=== PATIENT | male | born 1950 | race African-American/Black ===

== ENCOUNTER 2018-07-09 19:17 | Emergency (ER) | payer OTHER ==
[~2018-07-09] VITALS: Ht 193 cm; Wt 104.3 kg
[~2018-07-09 19:17] MED LIST: AZIT250T7; CARI350T22; MORP100T22; OXYCODONE 30 MG; PROAIR HFA AER
[2018-07-09 20:13] LABS: Basophils # (auto) 0 uL; Basophils % (auto) 0.6 % (0.0-2.0); Eosinophils # (auto) 0.4 uL; Eosinophils % (auto) 6.2 % (0.0-7.0); Hematocrit 41.3 % (41.0-53.0); Hemoglobin 13.5 g/dL (13.5-17.5); Lymphocytes # (auto) 2.5 uL; Lymphocytes % (auto) 36.8 % (10.0-50.0); Mean Corpuscular Hemoglobin 27.6 pg (28.0-32.0); Mean Corpuscular Hgb Conc. 32.6 g/dL (32.0-36.0); Mean Corpuscular Volume 84.6 fL (80.0-100.0); Monocytes # (auto) 0.6 uL; Monocytes % (auto) 8.2 % (0.0-12.0); Neutrophils # (auto) 3.3 uL; Neutrophils % (auto) 48.2 % (37.0-80.0); Nucleated Red Blood Cells % 0.2 %; Platelet Count (auto) 289 10^3/uL (140-450); Red Blood Cells 4.88 10^6/uL (4.5-5.90); Red Cell Distribution Width 14.5 % (11.8-14.3); White Blood Cell 6.8 10^3/uL (4.4-10.8)
[2018-07-09 20:16] LABS: INR 0.93 (0.9-1.15); Partial Thromboplastin Time 26.7 sec (23.78-33.04)
[2018-07-09 20:23] LABS: BUN/Creatinine Ratio 12.4; Calcium 9.7 mg/dL (8.5-10.1); Potassium 3.8 mmol/L (3.5-5.1)
[2018-07-09 20:26] LABS: Bilirubin, Total 0.3 mg/dL (0.2-1.0); Total Protein 8.3 g/dL (6.4-8.2)
[2018-07-10] MEDS: HYDROcodone-ACET 7.5/325MG TAB PO ONE (00:32)
[2018-07-10] MEDS: KETOROLAC TROMETH 60MG/2ML VIAL IM ONE (00:32)
[2018-07-10 01:26] VITALS: BP 128/71
== END 2018-07-10 01:55 | disposition home or self-care (01) ==
LOC: ER 19:17
DX: M17.11 Unilateral primary osteoarthritis, right knee (principal); F17.210 Nicotine dependence, cigarettes, uncomplicated; Z79.899 Other long term (current) drug therapy; Z96.651 Presence of right artificial knee joint
CPT/HCPCS: 36415; 80053; 85025; 85610; 85730; 93971; 96372; 99284; J1885

== ENCOUNTER 2020-03-17 18:26 | Inpatient (IN) | payer OTHER ==
[~2020-03-17] VITALS: Ht 193 cm; Wt 78.1 kg
[~2020-03-17 18:26] MED LIST changes: -AZIT250T7; +AZIT250T9; -MORP100T22; +MORP1TAB15
[2020-03-17 22:31] LABS: Basophils # (auto) 0 10 ^3/uL (0-0.2); Basophils % (auto) 0.2 % (0.0-2.0); Eosinophils # (auto) 0 10 ^3/uL (0-0.8); Hematocrit 44.8 % (41.0-53.0); Hemoglobin 14.6 g/dL (13.5-17.5); Lymphocytes # (auto) 0.7 10 ^3/uL (0.4-5.4); Lymphocytes % (auto) 8.9 % (10.0-50.0); Mean Corpuscular Hemoglobin 27.3 pg (28.0-32.0); Mean Corpuscular Hgb Conc. 32.6 g/dL (32.0-36.0); Mean Corpuscular Volume 83.7 fL (80.0-100.0); Monocytes # (auto) 0.6 10 ^3/uL (0-1.3); Monocytes % (auto) 8.4 % (0.0-12.0); Neutrophils # (auto) 6.3 10 ^3/uL (1.6-8.6); Neutrophils % (auto) 82.5 % (37.0-80.0); Platelet Count (auto) 247 10^3/uL (140-450); Red Blood Cells 5.35 10^6/uL (4.5-5.90); Red Cell Distribution Width 13.6 % (11.8-14.3); White Blood Cell 7.6 10^3/uL (4.4-10.8)
[2020-03-17 22:49] LABS: Albumin 2.5 g/dL (3.4-5.0); Calcium 8.5 mg/dL (8.5-10.1)
[2020-03-17 22:52] LABS: INR 1.03 (0.9-1.15); Partial Thromboplastin Time 31.1 sec (23.0-31.2)
[2020-03-17 22:57] LABS: BUN/Creatinine Ratio 13.7; Bilirubin, Total 0.3 mg/dL (0.2-1.0); Total Protein 7.4 g/dL (6.4-8.2)
[2020-03-17 23:07] LABS: Potassium 5.7 mmol/L (3.5-5.1)
[2020-03-17] MEDS ORDERED: CALCIUM GLUC 4.65meq/50ml D5AE 50 ML IV ONE (23:45)
[2020-03-17] MEDS ORDERED: SODIUM ZIRCONIUM CYCL 10 GM PAK PO ONE (23:45)
[2020-03-17] MEDS ORDERED: ALBUTEROL SULF 2.5 MG/0.5ML(0.5%) NEB SOLN NEB ONE (23:45)
[2020-03-17] MEDS ORDERED: SODIUM BICARBONATE 8.4% INJ 50ML SYRINGE IV ONE (23:45)
[2020-03-18] MEDS ORDERED: MORPHINE SULF INJ 2 MG/ML SYRINGE 1ML IV PRN (03:15)
[2020-03-18] MEDS ORDERED: NITROGLYCERIN 0.4 MG SL TAB SL PRN (03:15)
[2020-03-18] MEDS ORDERED: ONDANSETRON HCL 4 MG/2 ML VIAL IV PRN (03:15)
[2020-03-18] MEDS ORDERED: ACETAMINOPHEN 325 MG TAB PO PRN (03:15)
[2020-03-18] MEDS: DOXYCYCLINE 100MG/250ML 250 ML IV SCH ×2 (04:00→22:03)
[2020-03-18] MEDS: DexAMETHasone SOD PHOS 10MG/1ML VIAL INJ IV SCH (04:00)
[2020-03-18] MEDS ORDERED: MORPHINE SULF INJ 2 MG/ML SYRINGE 1ML ONE (04:19)
[2020-03-18] MEDS: SODIUM CHLOR 0.9% PF (SALINE LOCK) 10ML VIAL/SYR IV SCH ×3 (06:00→22:00)
[2020-03-18] MEDS: MULTIPLE VITAMIN TAB PO SCH (09:20)
[2020-03-18] MEDS: FAMOTIDINE 20 MG TAB PO SCH ×2 (09:20→22:03)
[2020-03-18] MEDS: ZINC SULFATE 220mg CAP or TAB PO SCH (09:20)
[2020-03-18] MEDS: ASCORBIC ACID 500 MG TAB PO SCH ×2 (09:21→22:03)
[2020-03-18] MEDS: CHOLECALCIFEROL (VITD3) 2,000 UNIT CAP/TAB PO SCH (09:22)
[2020-03-18] MEDS: HYDROcodone-ACET 5/325MG TAB PO PRN ×2 (09:23→16:10)
[2020-03-18] MEDS ORDERED: ENOXAPARIN SOD 40 MG/0.4 ML SYRINGE SC SCH (10:00)
[2020-03-18] MEDS: BUDESONIDE (INHALATION) 180 MCG IH IN SCH ×2 (10:00→22:04)
[2020-03-18] MEDS: ALBUTEROL SULF HFA 90MCG INH 200DOSE IN PRN ×2 (10:40→22:04)
[2020-03-18] MEDS ORDERED: diphenhdrAMINE HCL 50 MG/1 ML VL IV PRN (11:00)
[2020-03-18] MEDS ORDERED: REMDESIVIR PER PHARMACY 0 ML IV SCH (11:00)
[2020-03-18] MEDS ORDERED: IOHEXOL 350 MG/ML 100ML IJ ONE (11:00)
[2020-03-18 12:31] LABS: Basophils # (auto) 0 10 ^3/uL (0-0.2); Basophils % (auto) 0.1 % (0.0-2.0); Eosinophils # (auto) 0 10 ^3/uL (0-0.8); Hematocrit 41.8 % (41.0-53.0); Hemoglobin 13.7 g/dL (13.5-17.5); Lymphocytes # (auto) 0.4 10 ^3/uL (0.4-5.4); Lymphocytes % (auto) 6.7 % (10.0-50.0); Mean Corpuscular Hemoglobin 27.1 pg (28.0-32.0); Mean Corpuscular Hgb Conc. 32.9 g/dL (32.0-36.0); Mean Corpuscular Volume 82.5 fL (80.0-100.0); Monocytes # (auto) 0.4 10 ^3/uL (0-1.3); Monocytes % (auto) 6.9 % (0.0-12.0); Neutrophils # (auto) 5.2 10 ^3/uL (1.6-8.6); Neutrophils % (auto) 86.3 % (37.0-80.0); Platelet Count (auto) 258 10^3/uL (140-450); Red Blood Cells 5.07 10^6/uL (4.5-5.90); Red Cell Distribution Width 13.8 % (11.8-14.3); White Blood Cell 6.1 10^3/uL (4.4-10.8)
[2020-03-18 12:36] LABS: Calcium 8.9 mg/dL (8.5-10.1); Potassium 4.9 mmol/L (3.5-5.1)
[2020-03-18 12:39] LABS: BUN/Creatinine Ratio 12.6
[2020-03-18 18:23] LABS: Albumin 2.3 g/dL (3.4-5.0); Bilirubin, Direct 0.2 mg/dL (0-0.2)
[2020-03-18 18:25] LABS: Bilirubin, Total 0.3 mg/dL (0.2-1.0)
[2020-03-18] MEDS: SODIUM CHLORIDE 0.9% 1,000 ML IV SCH (19:45)
[2020-03-18] MEDS: Ensure Enlive Strawberry 8oz Bottle PO SCH (22:00)
[2020-03-18] MEDS: ENOXAPARIN SOD 100 MG/1 ML SYRINGE SC SCH (22:03)
[2020-03-19 02:12] VITALS: BP 116/64
[2020-03-19] MEDS ORDERED: OXY20CRT PO (03:17)
[2020-03-19] MEDS ORDERED: PNEUMOCOCCAL VACC POLYS 25 MCG/0.5 ML VIAL IM ONE (05:00)
[2020-03-19] MEDS ORDERED: INFLUENZA QUAD 2020-2021 0.5 ML SYRG IM ONE (05:00)
[2020-03-19] MEDS: HYDROcodone-ACET 5/325MG TAB PO PRN ×3 (05:01→19:03)
[2020-03-19 05:29] VITALS: BP 119/79
[2020-03-19] MEDS: SODIUM CHLOR 0.9% PF (SALINE LOCK) 10ML VIAL/SYR IV SCH ×3 (06:23→22:24)
[2020-03-19] MEDS: SODIUM CHLORIDE 0.9% 1,000 ML IV SCH (07:40)
[2020-03-19] MEDS: Ensure Enlive Strawberry 8oz Bottle PO SCH ×2 (08:25→18:00)
[2020-03-19 09:00] VITALS: BP 116/70
[2020-03-19] MEDS: BUDESONIDE (INHALATION) 180 MCG IH IN SCH ×2 (10:00→22:34)
[2020-03-19] MEDS: DexAMETHasone SOD PHOS 10MG/1ML VIAL INJ IV SCH (10:13)
[2020-03-19] MEDS: FUROSEMIDE 20 MG/2 ML VIAL IV SCH (10:13)
[2020-03-19] MEDS: DOXYCYCLINE 100MG/250ML 250 ML IV SCH ×2 (10:13→22:25)
[2020-03-19] MEDS: ZINC SULFATE 220mg CAP or TAB PO SCH (10:14)
[2020-03-19] MEDS: MULTIPLE VITAMIN TAB PO SCH (10:15)
[2020-03-19] MEDS: FAMOTIDINE 20 MG TAB PO SCH (10:16)
[2020-03-19] MEDS: CHOLECALCIFEROL (VITD3) 2,000 UNIT CAP/TAB PO SCH (10:17)
[2020-03-19] MEDS: ENOXAPARIN SOD 100 MG/1 ML SYRINGE SC SCH (10:17)
[2020-03-19] MEDS: ASCORBIC ACID 500 MG TAB PO SCH ×2 (10:17→22:25)
[2020-03-19 12:41] LABS: Eosinophils # (auto) 0 10 ^3/uL (0-0.8); Monocytes # (auto) 0.4 10 ^3/uL (0-1.3); Monocytes % (auto) 4.2 % (0.0-12.0); Neutrophils # (auto) 9.2 10 ^3/uL (1.6-8.6); Red Cell Distribution Width 13.6 % (11.8-14.3)
[2020-03-19 12:43] LABS: Basophils # (auto) 0 10 ^3/uL (0-0.2); Basophils % (auto) 0.1 % (0.0-2.0); Eosinophils % (auto) 0.3 % (0.0-7.0); Hematocrit 41.1 % (41.0-53.0); Hemoglobin 13.6 g/dL (13.5-17.5); Lymphocytes # (auto) 0.3 10 ^3/uL (0.4-5.4); Lymphocytes % (auto) 3.1 % (10.0-50.0); Mean Corpuscular Hemoglobin 27.2 pg (28.0-32.0); Mean Corpuscular Volume 82.5 fL (80.0-100.0); Neutrophils % (auto) 92.3 % (37.0-80.0); Platelet Count (auto) 272 10^3/uL (140-450); Red Blood Cells 4.99 10^6/uL (4.5-5.90)
[2020-03-19 13:00] VITALS: BP 119/73
[2020-03-19 13:01] LABS: Albumin 2.3 g/dL (3.4-5.0); Calcium 8.6 mg/dL (8.5-10.1); Potassium 4.7 mmol/L (3.5-5.1)
[2020-03-19 13:04] LABS: BUN/Creatinine Ratio 16.2; Bilirubin, Total 0.4 mg/dL (0.2-1.0)
[2020-03-19 17:00] VITALS: BP 110/70
[2020-03-19] MEDS: ALBUTEROL SULF HFA 90MCG INH 200DOSE IN PRN ×2 (17:02→22:35)
[2020-03-19 22:00] VITALS: BP 110/66
[2020-03-20] VITALS (8 sets, daily range): BP systolic 101–131; BP diastolic 62–88
[2020-03-20] MEDS: SODIUM CHLORIDE 0.9% 1,000 ML IV SCH ×2 (01:52→16:34)
[2020-03-20] MEDS: HYDROcodone-ACET 5/325MG TAB PO PRN (01:52)
[2020-03-20] MEDS: SODIUM CHLOR 0.9% PF (SALINE LOCK) 10ML VIAL/SYR IV SCH ×3 (06:00→21:56)
[2020-03-20] MEDS: BUDESONIDE (INHALATION) 180 MCG IH IN SCH ×2 (07:30→18:49)
[2020-03-20] MEDS: ALBUTEROL SULF HFA 90MCG INH 200DOSE IN PRN ×2 (07:32→18:49)
[2020-03-20] MEDS: Ensure Enlive Strawberry 8oz Bottle PO SCH ×2 (08:00→18:28)
[2020-03-20] MEDS: DexAMETHasone SOD PHOS 10MG/1ML VIAL INJ IV SCH (11:17)
[2020-03-20] MEDS: ZINC SULFATE 220mg CAP or TAB PO SCH (11:24)
[2020-03-20] MEDS: MULTIPLE VITAMIN TAB PO SCH (11:24)
[2020-03-20] MEDS: FAMOTIDINE 20 MG TAB PO SCH (11:24)
[2020-03-20] MEDS: ASCORBIC ACID 500 MG TAB PO SCH ×2 (11:25→21:57)
[2020-03-20] MEDS: ENOXAPARIN SOD 100 MG/1 ML SYRINGE SC SCH (11:25)
[2020-03-20] MEDS: CHOLECALCIFEROL (VITD3) 2,000 UNIT CAP/TAB PO SCH (11:25)
[2020-03-20] MEDS: DOXYCYCLINE 100MG/250ML 250 ML IV SCH ×2 (11:26→21:56)
[2020-03-20] MEDS: FUROSEMIDE 20 MG/2 ML VIAL IV SCH (11:28)
[2020-03-20] MEDS ORDERED: oxyCODONE ER 10 MG TAB PO PRN (11:45)
[2020-03-20 11:54] LABS: Basophils # (auto) 0 10 ^3/uL (0-0.2); Basophils % (auto) 0.1 % (0.0-2.0); Eosinophils # (auto) 0 10 ^3/uL (0-0.8); Hematocrit 42.5 % (41.0-53.0); Lymphocytes # (auto) 0.5 10 ^3/uL (0.4-5.4); Lymphocytes % (auto) 4.9 % (10.0-50.0); Mean Corpuscular Hemoglobin 27.4 pg (28.0-32.0); Mean Corpuscular Hgb Conc. 32.9 g/dL (32.0-36.0); Mean Corpuscular Volume 83.3 fL (80.0-100.0); Monocytes # (auto) 0.4 10 ^3/uL (0-1.3); Neutrophils # (auto) 9.3 10 ^3/uL (1.6-8.6); Nucleated Red Blood Cells % 0.1 %; Platelet Count (auto) 367 10^3/uL (140-450); Red Cell Distribution Width 13.7 % (11.8-14.3); White Blood Cell 10.3 10^3/uL (4.4-10.8)
[2020-03-20 12:17] LABS: Calcium 8.7 mg/dL (8.5-10.1); Potassium 4.6 mmol/L (3.5-5.1)
[2020-03-20 12:18] LABS: BUN/Creatinine Ratio 18.2
[2020-03-20 12:33] LABS: Albumin 2.2 g/dL (3.4-5.0); Bilirubin, Direct 0.2 mg/dL (0-0.2)
[2020-03-20 12:35] LABS: Bilirubin, Total 0.3 mg/dL (0.2-1.0); Total Protein 6.8 g/dL (6.4-8.2)
[2020-03-20] MEDS ORDERED: REMDESIVIR PER PHARMACY 0 ML IV SCH (13:15)
[2020-03-20] MEDS: oxyCODONE ER 10 MG TAB PO SCH ×3 (14:31→22:13)
[2020-03-20] MEDS ORDERED: REMDESIVIR 200 MG in NS 210ml LOADING DOSE ADULT IV ONE (17:00)
[2020-03-21] VITALS (8 sets, daily range): BP systolic 109–131; BP diastolic 57–77
[2020-03-21] MEDS: SODIUM CHLOR 0.9% PF (SALINE LOCK) 10ML VIAL/SYR IV SCH ×3 (06:08→21:34)
[2020-03-21] MEDS: oxyCODONE ER 10 MG TAB PO SCH ×4 (06:31→21:34)
[2020-03-21 07:29] LABS: Basophils # (auto) 0 10 ^3/uL (0-0.2); Basophils % (auto) 0.1 % (0.0-2.0); Eosinophils # (auto) 0 10 ^3/uL (0-0.8); Hematocrit 39.6 % (41.0-53.0); Hemoglobin 13.2 g/dL (13.5-17.5); Lymphocytes # (auto) 0.7 10 ^3/uL (0.4-5.4); Mean Corpuscular Hemoglobin 27.4 pg (28.0-32.0); Mean Corpuscular Hgb Conc. 33.4 g/dL (32.0-36.0); Mean Corpuscular Volume 82.3 fL (80.0-100.0); Monocytes # (auto) 0.4 10 ^3/uL (0-1.3); Neutrophils # (auto) 9.9 10 ^3/uL (1.6-8.6); Neutrophils % (auto) 89.9 % (37.0-80.0); Platelet Count (auto) 419 10^3/uL (140-450); Red Blood Cells 4.82 10^6/uL (4.5-5.90); Red Cell Distribution Width 13.9 % (11.8-14.3); White Blood Cell 11.1 10^3/uL (4.4-10.8)
[2020-03-21 07:37] LABS: Potassium 5.5 mmol/L (3.5-5.1)
[2020-03-21 07:47] LABS: Calcium 9.4 mg/dL (8.5-10.1)
[2020-03-21] MEDS: Ensure Enlive Strawberry 8oz Bottle PO SCH ×2 (08:00→17:59)
[2020-03-21] MEDS ORDERED: SODIUM ZIRCONIUM CYCL 10 GM PAK PO ONE (10:00)
[2020-03-21] MEDS: BUDESONIDE (INHALATION) 180 MCG IH IN SCH ×2 (10:00→23:10)
[2020-03-21] MEDS: ZINC SULFATE 220mg CAP or TAB PO SCH (10:30)
[2020-03-21] MEDS: MULTIPLE VITAMIN TAB PO SCH (10:30)
[2020-03-21] MEDS: FAMOTIDINE 20 MG TAB PO SCH (10:30)
[2020-03-21] MEDS: ENOXAPARIN SOD 100 MG/1 ML SYRINGE SC SCH (10:30)
[2020-03-21] MEDS: DexAMETHasone SOD PHOS 10MG/1ML VIAL INJ IV SCH (10:30)
[2020-03-21] MEDS: DOXYCYCLINE 100MG/250ML 250 ML IV SCH ×2 (10:30→21:34)
[2020-03-21] MEDS: FUROSEMIDE 20 MG/2 ML VIAL IV SCH (10:30)
[2020-03-21] MEDS: CHOLECALCIFEROL (VITD3) 2,000 UNIT CAP/TAB PO SCH (10:30)
[2020-03-21] MEDS: ASCORBIC ACID 500 MG TAB PO SCH ×2 (10:30→21:34)
[2020-03-21] MEDS: SODIUM BICARBONATE 50ML VIAL 150 ML in D5W 5% 1,000 ML IV SCH ×2 (13:10→23:00)
[2020-03-21] MEDS ORDERED: ALBUTEROL SULF 2.5 MG/0.5ML(0.5%) NEB SOLN NEB ONE (15:45)
[2020-03-21] MEDS ORDERED: SODIUM BICARBONATE 8.4% INJ 50ML SYRINGE IV ONE (15:45)
[2020-03-21] MEDS ORDERED: BUMETANIDE 2.5mg/10ml (0.25 mg/ml) INJ IV ONE (15:45)
[2020-03-21] MEDS ORDERED: REMDESIVIR 100 MG in SODIUM CHL 0.9% 250 ML IV SCH (17:00)
[2020-03-21] MEDS: SODIUM ZIRCONIUM CYCL 10 GM PAK PO SCH (21:33)
[2020-03-21] MEDS: ALBUTEROL SULF HFA 90MCG INH 200DOSE IN PRN (23:10)
[2020-03-22 05:00] VITALS: BP 118/70
[2020-03-22] MEDS: SODIUM ZIRCONIUM CYCL 10 GM PAK PO SCH (06:08)
[2020-03-22] MEDS: oxyCODONE ER 10 MG TAB PO SCH ×4 (06:08→22:15)
[2020-03-22] MEDS: SODIUM CHLOR 0.9% PF (SALINE LOCK) 10ML VIAL/SYR IV SCH ×3 (06:09→22:14)
[2020-03-22 07:29] LABS: Basophils # (auto) 0 10 ^3/uL (0-0.2); Basophils % (auto) 0.1 % (0.0-2.0); Eosinophils # (auto) 0 10 ^3/uL (0-0.8); Hemoglobin 13.2 g/dL (13.5-17.5); Lymphocytes # (auto) 0.8 10 ^3/uL (0.4-5.4); Lymphocytes % (auto) 6.8 % (10.0-50.0); Mean Corpuscular Hemoglobin 27.8 pg (28.0-32.0); Mean Corpuscular Hgb Conc. 33.7 g/dL (32.0-36.0); Mean Corpuscular Volume 82.3 fL (80.0-100.0); Monocytes # (auto) 0.2 10 ^3/uL (0-1.3); Monocytes % (auto) 2.1 % (0.0-12.0); Neutrophils # (auto) 10.3 10 ^3/uL (1.6-8.6); Platelet Count (auto) 444 10^3/uL (140-450); Red Blood Cells 4.74 10^6/uL (4.5-5.90); Red Cell Distribution Width 13.8 % (11.8-14.3); White Blood Cell 11.3 10^3/uL (4.4-10.8)
[2020-03-22 07:45] LABS: Albumin 2.4 g/dL (3.4-5.0); Calcium 8.7 mg/dL (8.5-10.1)
[2020-03-22 07:54] LABS: Bilirubin, Total 0.4 mg/dL (0.2-1.0); CRP High Sensitivity 7.5 mg/dL (< 0.3)
[2020-03-22 08:00] VITALS: BP 120/74
[2020-03-22] MEDS: Ensure Enlive Strawberry 8oz Bottle PO SCH ×2 (08:00→17:51)
[2020-03-22] MEDS: BUDESONIDE (INHALATION) 180 MCG IH IN SCH ×2 (10:10→20:24)
[2020-03-22] MEDS: ALBUTEROL SULF HFA 90MCG INH 200DOSE IN PRN ×2 (10:13→20:25)
[2020-03-22] MEDS: DexAMETHasone SOD PHOS 10MG/1ML VIAL INJ IV SCH (10:32)
[2020-03-22] MEDS: DOXYCYCLINE 100MG/250ML 250 ML IV SCH ×2 (10:33→22:15)
[2020-03-22] MEDS: FUROSEMIDE 20 MG/2 ML VIAL IV SCH (10:33)
[2020-03-22] MEDS: MULTIPLE VITAMIN TAB PO SCH (10:34)
[2020-03-22] MEDS: CHOLECALCIFEROL (VITD3) 2,000 UNIT CAP/TAB PO SCH (10:34)
[2020-03-22] MEDS: ENOXAPARIN SOD 100 MG/1 ML SYRINGE SC SCH ×2 (10:34→15:43)
[2020-03-22] MEDS: ASCORBIC ACID 500 MG TAB PO SCH ×2 (10:34→22:15)
[2020-03-22] MEDS: ZINC SULFATE 220mg CAP or TAB PO SCH (10:34)
[2020-03-22] MEDS: FAMOTIDINE 20 MG TAB PO SCH (10:34)
[2020-03-22] MEDS: SODIUM BICARBONATE 50ML VIAL 150 ML in D5W 5% 1,000 ML IV SCH (10:35)
[2020-03-22] MEDS ORDERED: SODIUM BICARBONATE 50ML VIAL 150 ML in D5W 5% 1,000 ML IV SCH (12:45)
[2020-03-22 13:53] VITALS: BP 116/74
[2020-03-22 17:00] VITALS: BP 134/76
[2020-03-22 20:00] VITALS: BP 112/82
[2020-03-22 22:00] VITALS: BP 112/82
[2020-03-23 05:00] VITALS: BP 123/78
[2020-03-23] MEDS: oxyCODONE ER 10 MG TAB PO SCH ×5 (06:00→21:15)
[2020-03-23] MEDS: SODIUM CHLOR 0.9% PF (SALINE LOCK) 10ML VIAL/SYR IV SCH ×3 (06:04→21:14)
[2020-03-23] MEDS: ALBUTEROL SULF HFA 90MCG INH 200DOSE IN PRN ×2 (06:56→21:27)
[2020-03-23] MEDS: BUDESONIDE (INHALATION) 180 MCG IH IN SCH ×2 (06:56→18:42)
[2020-03-23 07:02] LABS: Potassium 4.1 mmol/L (3.5-5.1)
[2020-03-23 07:10] LABS: Albumin 2.2 g/dL (3.4-5.0); BUN/Creatinine Ratio 22.4; Bilirubin, Total 0.5 mg/dL (0.2-1.0); Calcium 8.7 mg/dL (8.5-10.1); Total Protein 6.5 g/dL (6.4-8.2)
[2020-03-23] MEDS: Ensure Enlive Strawberry 8oz Bottle PO SCH ×2 (08:00→17:58)
[2020-03-23] MEDS: FAMOTIDINE 20 MG TAB PO SCH (11:43)
[2020-03-23] MEDS: DexAMETHasone SOD PHOS 10MG/1ML VIAL INJ IV SCH (11:43)
[2020-03-23] MEDS: MULTIPLE VITAMIN TAB PO SCH (11:43)
[2020-03-23] MEDS: ZINC SULFATE 220mg CAP or TAB PO SCH (11:43)
[2020-03-23] MEDS: ASCORBIC ACID 500 MG TAB PO SCH ×2 (11:44→21:14)
[2020-03-23] MEDS: ENOXAPARIN SOD 100 MG/1 ML SYRINGE SC SCH (11:44)
[2020-03-23] MEDS: CHOLECALCIFEROL (VITD3) 2,000 UNIT CAP/TAB PO SCH (11:44)
[2020-03-23 13:00] VITALS: BP 124/91
[2020-03-24 05:06] VITALS: BP 120/75
[2020-03-24] MEDS: SODIUM CHLOR 0.9% PF (SALINE LOCK) 10ML VIAL/SYR IV SCH ×3 (05:45→20:48)
[2020-03-24] MEDS: oxyCODONE ER 10 MG TAB PO SCH ×4 (05:46→22:00)
[2020-03-24] MEDS: BUDESONIDE (INHALATION) 180 MCG IH IN SCH ×2 (06:13→20:13)
[2020-03-24] MEDS: ALBUTEROL SULF HFA 90MCG INH 200DOSE IN PRN ×2 (06:13→20:13)
[2020-03-24] MEDS: Ensure Enlive Strawberry 8oz Bottle PO SCH ×2 (08:09→18:30)
[2020-03-24 09:00] VITALS: BP 103/66
[2020-03-24 09:17] LABS: Basophils # (auto) 0 10 ^3/uL (0-0.2); Basophils % (auto) 0.1 % (0.0-2.0); Lymphocytes # (auto) 0.6 10 ^3/uL (0.4-5.4); Monocytes # (auto) 0.2 10 ^3/uL (0-1.3); Neutrophils % (auto) 92.7 % (37.0-80.0)
[2020-03-24 09:21] LABS: Eosinophils # (auto) 0.1 10 ^3/uL (0-0.8); Eosinophils % (auto) 0.4 % (0.0-7.0); Hematocrit 42.8 % (41.0-53.0); Mean Corpuscular Hemoglobin 26.8 pg (28.0-32.0); Mean Corpuscular Hgb Conc. 32.6 g/dL (32.0-36.0); Mean Corpuscular Volume 82.3 fL (80.0-100.0); Monocytes % (auto) 1.8 % (0.0-12.0); Neutrophils # (auto) 11.5 10 ^3/uL (1.6-8.6); Nucleated Red Blood Cells % 0.1 %; Platelet Count (auto) 640 10^3/uL (140-450); Red Cell Distribution Width 13.4 % (11.8-14.3); White Blood Cell 12.4 10^3/uL (4.4-10.8)
[2020-03-24 09:45] LABS: Albumin 2.5 g/dL (3.4-5.0); Calcium 9.4 mg/dL (8.5-10.1)
[2020-03-24 09:49] LABS: Bilirubin, Total 0.7 mg/dL (0.2-1.0); Total Protein 7.8 g/dL (6.4-8.2); Uric Acid 7.7 mg/dL (3.5-7.2)
[2020-03-24] MEDS: DexAMETHasone SOD PHOS 10MG/1ML VIAL INJ IV SCH (10:00)
[2020-03-24] MEDS: MULTIPLE VITAMIN TAB PO SCH (10:01)
[2020-03-24] MEDS: ZINC SULFATE 220mg CAP or TAB PO SCH (10:01)
[2020-03-24] MEDS: ASCORBIC ACID 500 MG TAB PO SCH ×2 (10:02→20:48)
[2020-03-24] MEDS: FAMOTIDINE 20 MG TAB PO SCH (10:02)
[2020-03-24] MEDS: CHOLECALCIFEROL (VITD3) 2,000 UNIT CAP/TAB PO SCH (10:03)
[2020-03-24] MEDS: ENOXAPARIN SOD 100 MG/1 ML SYRINGE SC SCH (10:03)
[2020-03-24 13:00] VITALS: BP 128/78
[2020-03-24] MEDS: REMDESIVIR 100 MG in SODIUM CHL 0.9% 250 ML IV SCH (15:38)
[2020-03-24 16:54] VITALS: BP 134/68
[2020-03-24 22:00] VITALS: BP 125/86
[2020-03-25 05:00] VITALS: BP 108/75
[2020-03-25] MEDS: oxyCODONE ER 10 MG TAB PO SCH ×5 (06:00→21:55)
[2020-03-25] MEDS: BUDESONIDE (INHALATION) 180 MCG IH IN SCH ×2 (06:08→22:00)
[2020-03-25] MEDS: SODIUM CHLOR 0.9% PF (SALINE LOCK) 10ML VIAL/SYR IV SCH ×3 (06:40→21:55)
[2020-03-25] MEDS: Ensure Enlive Strawberry 8oz Bottle PO SCH ×2 (08:00→18:00)
[2020-03-25 09:00] VITALS: BP 114/75
[2020-03-25] MEDS: ASCORBIC ACID 500 MG TAB PO SCH ×2 (10:00→21:55)
[2020-03-25] MEDS: FAMOTIDINE 20 MG TAB PO SCH (10:00)
[2020-03-25] MEDS: MULTIPLE VITAMIN TAB PO SCH (10:00)
[2020-03-25] MEDS: CHOLECALCIFEROL (VITD3) 2,000 UNIT CAP/TAB PO SCH (10:00)
[2020-03-25] MEDS: ZINC SULFATE 220mg CAP or TAB PO SCH (10:00)
[2020-03-25 11:50] LABS: Basophils # (auto) 0 10 ^3/uL (0-0.2); Basophils % (auto) 0.1 % (0.0-2.0); Eosinophils # (auto) 0.1 10 ^3/uL (0-0.8); Hematocrit 40.9 % (41.0-53.0); Hemoglobin 13.4 g/dL (13.5-17.5); Lymphocytes # (auto) 0.4 10 ^3/uL (0.4-5.4); Lymphocytes % (auto) 4.3 % (10.0-50.0); Mean Corpuscular Hgb Conc. 32.8 g/dL (32.0-36.0); Mean Corpuscular Volume 82.5 fL (80.0-100.0); Monocytes # (auto) 0.1 10 ^3/uL (0-1.3); Monocytes % (auto) 1.6 % (0.0-12.0); Neutrophils # (auto) 8.8 10 ^3/uL (1.6-8.6); Platelet Count (auto) 419 10^3/uL (140-450); Red Blood Cells 4.95 10^6/uL (4.5-5.90); Red Cell Distribution Width 13.6 % (11.8-14.3); White Blood Cell 9.4 10^3/uL (4.4-10.8)
[2020-03-25 11:56] LABS: Potassium 4.7 mmol/L (3.5-5.1)
[2020-03-25 12:02] LABS: Albumin 1.9 g/dL (3.4-5.0); BUN/Creatinine Ratio 26.5; Bilirubin, Total 0.7 mg/dL (0.2-1.0); Calcium 9.1 mg/dL (8.5-10.1); Total Protein 6.8 g/dL (6.4-8.2)
[2020-03-25] MEDS: DexAMETHasone SOD PHOS 10MG/1ML VIAL INJ IV SCH (12:52)
[2020-03-25] MEDS: ENOXAPARIN SOD 100 MG/1 ML SYRINGE SC SCH (12:52)
[2020-03-25 13:00] VITALS: BP 108/74
[2020-03-25] MEDS ORDERED: FUROSEMIDE 40 MG/4 ML VIAL IV ONE (14:00)
[2020-03-25] MEDS: REMDESIVIR 100 MG in SODIUM CHL 0.9% 250 ML IV SCH (15:22)
[2020-03-25 16:30] VITALS: BP 164/83
[2020-03-25 17:20] VITALS: BP 108/64
[2020-03-25 22:00] VITALS: BP 104/70
[2020-03-25] MEDS: ALBUTEROL SULF HFA 90MCG INH 200DOSE IN PRN (23:03)
[2020-03-26 05:30] VITALS: BP 103/71
[2020-03-26] MEDS: oxyCODONE ER 10 MG TAB PO SCH ×4 (06:00→21:44)
[2020-03-26] MEDS: BUDESONIDE (INHALATION) 180 MCG IH IN SCH ×2 (06:20→19:00)
[2020-03-26] MEDS: SODIUM CHLOR 0.9% PF (SALINE LOCK) 10ML VIAL/SYR IV SCH ×3 (06:26→21:44)
[2020-03-26 07:19] LABS: Basophils # (auto) 0 10 ^3/uL (0-0.2); Basophils % (auto) 0.1 % (0.0-2.0); Eosinophils # (auto) 0 10 ^3/uL (0-0.8); Hemoglobin 12.8 g/dL (13.5-17.5); Lymphocytes # (auto) 0.5 10 ^3/uL (0.4-5.4); Monocytes # (auto) 0.3 10 ^3/uL (0-1.3)
[2020-03-26 07:23] LABS: Eosinophils % (auto) 0.1 % (0.0-7.0); Hematocrit 38.7 % (41.0-53.0); Mean Corpuscular Hemoglobin 27.6 pg (28.0-32.0); Mean Corpuscular Volume 83.7 fL (80.0-100.0); Neutrophils # (auto) 9.8 10 ^3/uL (1.6-8.6); Neutrophils % (auto) 91.8 % (37.0-80.0); Nucleated Red Blood Cells % 0.1 %; Platelet Count (auto) 472 10^3/uL (140-450); Red Blood Cells 4.62 10^6/uL (4.5-5.90); Red Cell Distribution Width 13.9 % (11.8-14.3); White Blood Cell 10.7 10^3/uL (4.4-10.8)
[2020-03-26 07:44] LABS: Potassium 4.5 mmol/L (3.5-5.1)
[2020-03-26 07:55] LABS: BUN/Creatinine Ratio 34.1; Bilirubin, Total 0.5 mg/dL (0.2-1.0); Calcium 9.7 mg/dL (8.5-10.1)
[2020-03-26] MEDS: Ensure Enlive Strawberry 8oz Bottle PO SCH ×2 (08:00→18:00)
[2020-03-26 08:16] LABS: Urine Amorphous Crystal FEW /hpf (None Seen); Urine Bacteria FEW /hpf (None Seen); Urine Blood Negative /uL (Negative); Urine Specific Gravity 1.018 (1.001-1.035); Urine WBC 2 /hpf (0 - 3)
[2020-03-26 09:00] VITALS: BP 100/71
[2020-03-26] MEDS: ENOXAPARIN SOD 100 MG/1 ML SYRINGE SC SCH (11:01)
[2020-03-26] MEDS: ASCORBIC ACID 500 MG TAB PO SCH ×2 (11:01→21:43)
[2020-03-26] MEDS: MULTIPLE VITAMIN TAB PO SCH (11:01)
[2020-03-26] MEDS: DexAMETHasone SOD PHOS 10MG/1ML VIAL INJ IV SCH (11:01)
[2020-03-26] MEDS: FAMOTIDINE 20 MG TAB PO SCH (11:01)
[2020-03-26] MEDS: ZINC SULFATE 220mg CAP or TAB PO SCH (11:04)
[2020-03-26] MEDS: CHOLECALCIFEROL (VITD3) 2,000 UNIT CAP/TAB PO SCH (11:04)
[2020-03-26 12:35] VITALS: BP 109/75
[2020-03-26] MEDS: REMDESIVIR 100 MG in SODIUM CHL 0.9% 250 ML IV SCH (15:12)
[2020-03-26 17:31] VITALS: BP 123/76
[2020-03-26] MEDS: ALBUTEROL SULF HFA 90MCG INH 200DOSE IN PRN (19:13)
[2020-03-26 22:00] VITALS: BP 112/73
[2020-03-27 05:00] VITALS: BP 118/73
[2020-03-27] MEDS: oxyCODONE ER 10 MG TAB PO SCH ×4 (05:41→21:58)
[2020-03-27] MEDS: SODIUM CHLOR 0.9% PF (SALINE LOCK) 10ML VIAL/SYR IV SCH ×3 (05:41→21:58)
[2020-03-27 07:05] LABS: Basophils # (auto) 0 10 ^3/uL (0-0.2); Eosinophils # (auto) 0 10 ^3/uL (0-0.8); Mean Corpuscular Hemoglobin 26.9 pg (28.0-32.0); Neutrophils # (auto) 13.5 10 ^3/uL (1.6-8.6); White Blood Cell 14.8 10^3/uL (4.4-10.8)
[2020-03-27 07:07] LABS: Hemoglobin 12.7 g/dL (13.5-17.5); Lymphocytes # (auto) 0.8 10 ^3/uL (0.4-5.4); Lymphocytes % (auto) 5.2 % (10.0-50.0); Mean Corpuscular Hgb Conc. 31.9 g/dL (32.0-36.0); Mean Corpuscular Volume 84.5 fL (80.0-100.0); Monocytes # (auto) 0.5 10 ^3/uL (0-1.3); Monocytes % (auto) 3.6 % (0.0-12.0); Neutrophils % (auto) 91.2 % (37.0-80.0); Platelet Count (auto) 518 10^3/uL (140-450); Red Blood Cells 4.74 10^6/uL (4.5-5.90); Red Cell Distribution Width 13.8 % (11.8-14.3)
[2020-03-27 07:37] LABS: Calcium 9.6 mg/dL (8.5-10.1); Potassium 4.5 mmol/L (3.5-5.1)
[2020-03-27 07:43] LABS: Albumin 2.1 g/dL (3.4-5.0); BUN/Creatinine Ratio 38.2; Bilirubin, Total 0.5 mg/dL (0.2-1.0)
[2020-03-27 08:00] VITALS: BP 124/78
[2020-03-27] MEDS: Ensure Enlive Strawberry 8oz Bottle PO SCH ×2 (08:00→17:59)
[2020-03-27 08:15] VITALS: BP 124/78
[2020-03-27] MEDS: BUDESONIDE (INHALATION) 180 MCG IH IN SCH ×2 (08:16→19:00)
[2020-03-27] MEDS: ALBUTEROL SULF HFA 90MCG INH 200DOSE IN PRN ×2 (08:16→19:27)
[2020-03-27] MEDS: ZINC SULFATE 220mg CAP or TAB PO SCH (10:00)
[2020-03-27] MEDS: CHOLECALCIFEROL (VITD3) 2,000 UNIT CAP/TAB PO SCH (10:00)
[2020-03-27] MEDS: FAMOTIDINE 20 MG TAB PO SCH (10:36)
[2020-03-27] MEDS: MULTIPLE VITAMIN TAB PO SCH (10:36)
[2020-03-27] MEDS: ASCORBIC ACID 500 MG TAB PO SCH ×2 (10:36→21:58)
[2020-03-27] MEDS: ENOXAPARIN SOD 100 MG/1 ML SYRINGE SC SCH (10:37)
[2020-03-27] MEDS: DexAMETHasone SOD PHOS 10MG/1ML VIAL INJ IV SCH (10:37)
[2020-03-27 13:02] VITALS: BP 123/69
[2020-03-27] MEDS: REMDESIVIR 100 MG in SODIUM CHL 0.9% 250 ML IV SCH (15:16)
[2020-03-27 16:39] VITALS: BP 112/73
[2020-03-27] MEDS: PIPERACILLIN-TAZOB 3.375GM 100 ML IV SCH (18:02)
[2020-03-27 22:00] VITALS: BP 116/72
[2020-03-28] MEDS: PIPERACILLIN-TAZOB 3.375GM 100 ML IV SCH ×4 (00:15→18:19)
[2020-03-28 05:00] VITALS: BP 116/84
[2020-03-28] MEDS: SODIUM CHLOR 0.9% PF (SALINE LOCK) 10ML VIAL/SYR IV SCH ×3 (06:10→21:43)
[2020-03-28] MEDS: oxyCODONE ER 10 MG TAB PO SCH ×4 (06:11→21:43)
[2020-03-28] MEDS: BUDESONIDE (INHALATION) 180 MCG IH IN SCH ×2 (06:26→20:00)
[2020-03-28] MEDS: ALBUTEROL SULF HFA 90MCG INH 200DOSE IN PRN ×2 (06:26→20:00)
[2020-03-28 07:25] LABS: Basophils # (auto) 0 10 ^3/uL (0-0.2); Basophils % (auto) 0.1 % (0.0-2.0); Eosinophils # (auto) 0 10 ^3/uL (0-0.8); Hematocrit 37.7 % (41.0-53.0); Monocytes # (auto) 0.5 10 ^3/uL (0-1.3)
[2020-03-28 07:28] LABS: Eosinophils % (auto) 0.3 % (0.0-7.0); Hemoglobin 12.4 g/dL (13.5-17.5); Lymphocytes # (auto) 0.9 10 ^3/uL (0.4-5.4); Lymphocytes % (auto) 6.5 % (10.0-50.0); Mean Corpuscular Hemoglobin 27.3 pg (28.0-32.0); Mean Corpuscular Hgb Conc. 32.9 g/dL (32.0-36.0); Monocytes % (auto) 3.9 % (0.0-12.0); Neutrophils % (auto) 89.2 % (37.0-80.0); Platelet Count (auto) 455 10^3/uL (140-450); Red Blood Cells 4.54 10^6/uL (4.5-5.90); Red Cell Distribution Width 13.5 % (11.8-14.3); White Blood Cell 13.5 10^3/uL (4.4-10.8)
[2020-03-28 08:00] VITALS: BP 117/79
[2020-03-28] MEDS: Ensure Enlive Strawberry 8oz Bottle PO SCH ×2 (08:00→18:00)
[2020-03-28 08:25] VITALS: BP 117/79
[2020-03-28 08:56] LABS: BUN/Creatinine Ratio 34.6; Bilirubin, Total 0.5 mg/dL (0.2-1.0); Calcium 9.2 mg/dL (8.5-10.1); Potassium 4.2 mmol/L (3.5-5.1); Total Protein 6.5 g/dL (6.4-8.2)
[2020-03-28] MEDS: ASCORBIC ACID 500 MG TAB PO SCH ×2 (10:00→21:38)
[2020-03-28] MEDS: MULTIPLE VITAMIN TAB PO SCH (10:39)
[2020-03-28] MEDS: ZINC SULFATE 220mg CAP or TAB PO SCH (10:39)
[2020-03-28] MEDS: CHOLECALCIFEROL (VITD3) 2,000 UNIT CAP/TAB PO SCH (10:43)
[2020-03-28] MEDS: FAMOTIDINE 20 MG TAB PO SCH (10:43)
[2020-03-28] MEDS: ENOXAPARIN SOD 100 MG/1 ML SYRINGE SC SCH (10:44)
[2020-03-28 13:00] VITALS: BP 122/72
[2020-03-28] MEDS ORDERED: FUROSEMIDE 40 MG/4 ML VIAL IV ONE (15:30)
[2020-03-28 16:39] VITALS: BP 130/67
[2020-03-28] MEDS: APIXABAN 5 MG TAB PO SCH (21:38)
[2020-03-28 22:00] VITALS: BP 122/68
[2020-03-29] MEDS: PIPERACILLIN-TAZOB 3.375GM 100 ML IV SCH ×3 (00:44→12:21)
[2020-03-29 05:00] VITALS: BP 107/66
[2020-03-29] MEDS: BUDESONIDE (INHALATION) 180 MCG IH IN SCH ×2 (05:42→22:00)
[2020-03-29] MEDS: ALBUTEROL SULF HFA 90MCG INH 200DOSE IN PRN (05:42)
[2020-03-29] MEDS: oxyCODONE ER 10 MG TAB PO SCH ×4 (06:00→22:00)
[2020-03-29] MEDS: SODIUM CHLOR 0.9% PF (SALINE LOCK) 10ML VIAL/SYR IV SCH ×3 (06:43→22:02)
[2020-03-29] MEDS: Ensure Enlive Strawberry 8oz Bottle PO SCH ×2 (08:00→16:24)
[2020-03-29 08:30] VITALS: BP 115/66
[2020-03-29] MEDS: APIXABAN 5 MG TAB PO SCH (10:00)
[2020-03-29] MEDS: CHOLECALCIFEROL (VITD3) 2,000 UNIT CAP/TAB PO SCH (10:00)
[2020-03-29] MEDS: MULTIPLE VITAMIN TAB PO SCH (10:00)
[2020-03-29] MEDS: FAMOTIDINE 20 MG TAB PO SCH (10:00)
[2020-03-29] MEDS: ZINC SULFATE 220mg CAP or TAB PO SCH (10:00)
[2020-03-29] MEDS: ASCORBIC ACID 500 MG TAB PO SCH ×2 (10:00→22:00)
[2020-03-29 11:24] LABS: Basophils # (auto) 0 10 ^3/uL (0-0.2); Eosinophils # (auto) 0.1 10 ^3/uL (0-0.8); Eosinophils % (auto) 0.7 % (0.0-7.0); Hematocrit 41.9 % (41.0-53.0); Hemoglobin 13.6 g/dL (13.5-17.5); Lymphocytes # (auto) 0.3 10 ^3/uL (0.4-5.4); Lymphocytes % (auto) 1.7 % (10.0-50.0); Mean Corpuscular Hemoglobin 27.1 pg (28.0-32.0); Mean Corpuscular Hgb Conc. 32.5 g/dL (32.0-36.0); Mean Corpuscular Volume 83.3 fL (80.0-100.0); Monocytes # (auto) 0.4 10 ^3/uL (0-1.3); Monocytes % (auto) 2.2 % (0.0-12.0); Neutrophils # (auto) 16.3 10 ^3/uL (1.6-8.6); Neutrophils % (auto) 95.4 % (37.0-80.0); Platelet Count (auto) 438 10^3/uL (140-450); Red Blood Cells 5.02 10^6/uL (4.5-5.90); Red Cell Distribution Width 13.8 % (11.8-14.3); White Blood Cell 17.1 10^3/uL (4.4-10.8)
[2020-03-29 11:39] LABS: Potassium 4.1 mmol/L (3.5-5.1)
[2020-03-29] MEDS ORDERED: PPN PER PHARMACY 0 ML IV SCH (11:45)
[2020-03-29 11:52] LABS: Albumin 2.1 g/dL (3.4-5.0); BUN/Creatinine Ratio 28.8; Bilirubin, Total 1.1 mg/dL (0.2-1.0); Calcium 9.2 mg/dL (8.5-10.1); Total Protein 7.2 g/dL (6.4-8.2)
[2020-03-29 12:30] VITALS: BP 115/73
[2020-03-29] MEDS ORDERED: SOD CHL 0.45% 1,000 ML IV ONE (13:00)
[2020-03-29 17:12] VITALS: BP 114/67
[2020-03-29 17:19] LABS: Magnesium 2.2 mg/dL (1.6-2.6); Phosphorus 4.2 mg/dL (2.5-4.90)
[2020-03-29] MEDS: ACCU-CHEK COMFORT CURVE STRIP VI SCH (17:57)
[2020-03-29] MEDS: InsuLIN REG 1unit/0.01ml Soln (100units/ml) SC SCH (17:58)
[2020-03-29] MEDS ORDERED: DEXTROSE (50%) 50ML SYRG IV SCH (18:00)
[2020-03-29 20:00] VITALS: BP 109/70
[2020-03-29] MEDS ORDERED: AMINO ACID INFUSION IN D10W 1,000 ML IV NR (20:00)
[2020-03-29] MEDS: ENOXAPARIN SOD 80 MG/0.8ML SYRINGE SC SCH (20:36)
[2020-03-29] MEDS: CEFEPIME 1 GM in NS 0.9% 50 ML IV SCH (22:12)
[2020-03-30] MEDS: ACCU-CHEK COMFORT CURVE STRIP VI SCH ×5 (00:21→23:04)
[2020-03-30] MEDS: InsuLIN REG 1unit/0.01ml Soln (100units/ml) SC SCH ×5 (00:22→23:06)
[2020-03-30 05:00] VITALS: BP 102/69
[2020-03-30] MEDS: oxyCODONE ER 10 MG TAB PO SCH ×4 (06:00→22:00)
[2020-03-30] MEDS: BUDESONIDE (INHALATION) 180 MCG IH IN SCH ×2 (06:35→22:00)
[2020-03-30] MEDS: SODIUM CHLOR 0.9% PF (SALINE LOCK) 10ML VIAL/SYR IV SCH ×3 (06:47→22:50)
[2020-03-30 07:15] LABS: Basophils # (auto) 0 10 ^3/uL (0-0.2); Basophils % (auto) 0.2 % (0.0-2.0); Eosinophils # (auto) 0.3 10 ^3/uL (0-0.8); Eosinophils % (auto) 1.6 % (0.0-7.0); Hemoglobin 13.9 g/dL (13.5-17.5); Lymphocytes # (auto) 0.9 10 ^3/uL (0.4-5.4); Lymphocytes % (auto) 5.3 % (10.0-50.0); Mean Corpuscular Hemoglobin 27.6 pg (28.0-32.0); Mean Corpuscular Volume 83.7 fL (80.0-100.0); Monocytes # (auto) 0.4 10 ^3/uL (0-1.3); Monocytes % (auto) 2.4 % (0.0-12.0); Neutrophils # (auto) 14.5 10 ^3/uL (1.6-8.6); Neutrophils % (auto) 90.5 % (37.0-80.0); Platelet Count (auto) 442 10^3/uL (140-450); Red Blood Cells 5.02 10^6/uL (4.5-5.90); Red Cell Distribution Width 13.8 % (11.8-14.3)
[2020-03-30] MEDS: Ensure Enlive Strawberry 8oz Bottle PO SCH ×2 (08:00→17:49)
[2020-03-30 08:24] LABS: Potassium 4.3 mmol/L (3.5-5.1)
[2020-03-30 08:43] LABS: Albumin 1.9 g/dL (3.4-5.0); BUN/Creatinine Ratio 36.8; Bilirubin, Total 0.6 mg/dL (0.2-1.0); Calcium 9.3 mg/dL (8.5-10.1); Magnesium 2.4 mg/dL (1.6-2.6); Phosphorus 2.8 mg/dL (2.5-4.90); Pre Albumin 13.6 mg/dL (20.0-40.0); Total Protein 7.3 g/dL (6.4-8.2)
[2020-03-30 09:00] VITALS: BP 111/77
[2020-03-30] MEDS: FAMOTIDINE 20 MG TAB PO SCH (10:00)
[2020-03-30] MEDS: CHOLECALCIFEROL (VITD3) 2,000 UNIT CAP/TAB PO SCH (10:00)
[2020-03-30] MEDS: ZINC SULFATE 220mg CAP or TAB PO SCH (10:00)
[2020-03-30] MEDS: ASCORBIC ACID 500 MG TAB PO SCH ×2 (10:00→22:00)
[2020-03-30] MEDS: MULTIPLE VITAMIN TAB PO SCH (10:00)
[2020-03-30] MEDS: ENOXAPARIN SOD 80 MG/0.8ML SYRINGE SC SCH ×2 (10:09→22:50)
[2020-03-30] MEDS: CEFEPIME 1 GM in NS 0.9% 50 ML IV SCH ×2 (10:10→22:50)
[2020-03-30 13:00] VITALS: BP 121/86
[2020-03-30 17:00] VITALS: BP 117/82
[2020-03-30] MEDS ORDERED: ACETAMINOPHEN 650 mg PER 20.3 mL UD PO ONE (19:30)
[2020-03-30] MEDS ORDERED: diphenhdrAMINE HCL 50 MG/1 ML VL IV ONE (19:30)
[2020-03-30] MEDS ORDERED: ACETAMINOPHEN 650 MG RECT SUPP PR ONE (19:30)
[2020-03-30] MEDS ORDERED: methylPREDNISolone SOD SUCC 40 MG/ML VL IV ONE (19:30)
[2020-03-30] MEDS ORDERED: TOCILIZUMAB 400 MG in SODIUM CHL 0.9% 80 ML IV ONE (20:00)
[2020-03-30] MEDS ORDERED: PPN PER PHARMACY IV NR ×10 (20:00)
[2020-03-30 21:14] LABS: INR 1.21 (0.9-1.15); Partial Thromboplastin Time 32.6 sec (23.0-31.2)
[2020-03-30 21:45] VITALS: BP 123/79
[2020-03-31 06:00] VITALS: BP 119/87
[2020-03-31] MEDS: oxyCODONE ER 10 MG TAB PO SCH ×3 (06:00→14:36)
[2020-03-31] MEDS: BUDESONIDE (INHALATION) 180 MCG IH IN SCH ×2 (06:05→21:04)
[2020-03-31] MEDS: ACCU-CHEK COMFORT CURVE STRIP VI SCH ×3 (06:15→17:15)
[2020-03-31] MEDS: SODIUM CHLOR 0.9% PF (SALINE LOCK) 10ML VIAL/SYR IV SCH ×2 (06:15→22:27)
[2020-03-31] MEDS: InsuLIN REG 1unit/0.01ml Soln (100units/ml) SC SCH ×3 (06:15→17:40)
[2020-03-31] MEDS: Ensure Enlive Strawberry 8oz Bottle PO SCH ×2 (08:00→14:36)
[2020-03-31 08:30] VITALS: BP 135/86
[2020-03-31 08:49] LABS: BUN/Creatinine Ratio 42.9; Bilirubin, Total 0.5 mg/dL (0.2-1.0); Calcium 9.3 mg/dL (8.5-10.1); Magnesium 2.3 mg/dL (1.6-2.6); Phosphorus 3.5 mg/dL (2.5-4.90); Total Protein 7.4 g/dL (6.4-8.2)
[2020-03-31] MEDS ORDERED: FUROSEMIDE 40 MG/4 ML VIAL IV ONE (09:30)
[2020-03-31] MEDS: ENOXAPARIN SOD 80 MG/0.8ML SYRINGE SC SCH ×2 (09:39→22:27)
[2020-03-31] MEDS: CEFEPIME 1 GM in NS 0.9% 50 ML IV SCH ×2 (09:39→22:27)
[2020-03-31] MEDS: FAMOTIDINE 20 MG TAB PO SCH (10:00)
[2020-03-31] MEDS: ASCORBIC ACID 500 MG TAB PO SCH ×2 (10:00→22:00)
[2020-03-31] MEDS: MULTIPLE VITAMIN TAB PO SCH (10:00)
[2020-03-31] MEDS: CHOLECALCIFEROL (VITD3) 2,000 UNIT CAP/TAB PO SCH (10:00)
[2020-03-31] MEDS: ZINC SULFATE 220mg CAP or TAB PO SCH (10:00)
[2020-03-31] MEDS ORDERED: diphenhdrAMINE HCL 50 MG/1 ML VL IV ONE (10:30)
[2020-03-31] MEDS ORDERED: methylPREDNISolone SOD SUCC 40 MG/ML VL IV ONE (10:30)
[2020-03-31] MEDS ORDERED: ACETAMINOPHEN 650 MG RECT SUPP PR ONE (10:30)
[2020-03-31] MEDS ORDERED: TOCILIZUMAB 400 MG in SODIUM CHL 0.9% 80 ML IV ONE (11:00)
[2020-03-31] MEDS ORDERED: ACETAMINOPHEN 650 MG RECT SUPP PR PRN (14:45)
[2020-03-31] MEDS ORDERED: PANTOPRAZOLE 40 MG/10 ML VIAL INJ IV ONE (14:45)
[2020-03-31] MEDS: MORPHINE SULF INJ 2 MG/ML SYRINGE 1ML IV PRN ×3 (15:00→22:28)
[2020-03-31 16:17] VITALS: BP 123/87
[2020-03-31] MEDS: PPN PER PHARMACY IV NR ×9 (20:43)
[2020-03-31 22:00] VITALS: BP 140/85
[2020-04-01] MEDS: InsuLIN REG 1unit/0.01ml Soln (100units/ml) SC SCH ×4 (00:10→17:32)
[2020-04-01] MEDS: ACCU-CHEK COMFORT CURVE STRIP VI SCH ×4 (00:10→17:32)
[2020-04-01 00:14] LABS: Basophils # (auto) 0.1 10 ^3/uL (0-0.2); Basophils % (auto) 0.4 % (0.0-2.0); Eosinophils # (auto) 0 10 ^3/uL (0-0.8); Eosinophils % (auto) 0.2 % (0.0-7.0); Hematocrit 40.8 % (41.0-53.0); Hemoglobin 13.2 g/dL (13.5-17.5); Lymphocytes # (auto) 0.6 10 ^3/uL (0.4-5.4); Mean Corpuscular Hemoglobin 27.4 pg (28.0-32.0); Mean Corpuscular Hgb Conc. 32.5 g/dL (32.0-36.0); Mean Corpuscular Volume 84.2 fL (80.0-100.0); Monocytes # (auto) 0.5 10 ^3/uL (0-1.3); Monocytes % (auto) 3.1 % (0.0-12.0); Neutrophils # (auto) 14.9 10 ^3/uL (1.6-8.6); Neutrophils % (auto) 92.3 % (37.0-80.0); Platelet Count (auto) 431 10^3/uL (140-450); Red Blood Cells 4.84 10^6/uL (4.5-5.90); Red Cell Distribution Width 13.9 % (11.8-14.3); White Blood Cell 16.1 10^3/uL (4.4-10.8)
[2020-04-01] MEDS: MORPHINE SULF INJ 2 MG/ML SYRINGE 1ML IV PRN ×4 (02:04→22:20)
[2020-04-01 05:34] VITALS: BP 139/90
[2020-04-01 09:00] VITALS: BP 140/72
[2020-04-01] MEDS: ASCORBIC ACID 500 MG TAB PO SCH ×2 (10:00→22:00)
[2020-04-01] MEDS: SODIUM CHLOR 0.9% PF (SALINE LOCK) 10ML VIAL/SYR IV SCH ×2 (10:00→22:37)
[2020-04-01] MEDS: BUDESONIDE (INHALATION) 180 MCG IH IN SCH ×2 (10:10→22:00)
[2020-04-01 10:59] LABS: Albumin 2.1 g/dL (3.4-5.0); Calcium 9.4 mg/dL (8.5-10.1); Magnesium 2.3 mg/dL (1.6-2.6); Potassium 4.2 mmol/L (3.5-5.1)
[2020-04-01 11:03] LABS: BUN/Creatinine Ratio 39.1; Bilirubin, Total 0.4 mg/dL (0.2-1.0); Phosphorus 3.1 mg/dL (2.5-4.90); Total Protein 7.5 g/dL (6.4-8.2)
[2020-04-01] MEDS: CEFEPIME 1 GM in NS 0.9% 50 ML IV SCH ×2 (11:45→22:36)
[2020-04-01] MEDS: PANTOPRAZOLE 40 MG/10 ML VIAL INJ IV SCH (11:45)
[2020-04-01] MEDS: ENOXAPARIN SOD 80 MG/0.8ML SYRINGE SC SCH ×2 (11:46→22:37)
[2020-04-01] MEDS ORDERED: FUROSEMIDE 40 MG/4 ML VIAL IV ONE (12:45)
[2020-04-01 15:56] VITALS: BP 120/83
[2020-04-01] MEDS: PPN PER PHARMACY IV NR ×9 (19:58)
[2020-04-01] MEDS ORDERED: TPN PER PHARMACY IV NR ×9 (20:00)
[2020-04-01 21:48] VITALS: BP 125/83
[2020-04-02] MEDS: ACCU-CHEK COMFORT CURVE STRIP VI SCH ×5 (00:21→23:41)
[2020-04-02] MEDS: InsuLIN REG 1unit/0.01ml Soln (100units/ml) SC SCH ×5 (00:22→23:43)
[2020-04-02] MEDS: MORPHINE SULF INJ 2 MG/ML SYRINGE 1ML IV PRN ×2 (02:30→19:49)
[2020-04-02 04:52] VITALS: BP 156/63
[2020-04-02 06:25] LABS: Potassium 4.3 mmol/L (3.5-5.1)
[2020-04-02 06:32] LABS: Albumin 2.2 g/dL (3.4-5.0); BUN/Creatinine Ratio 41.4; Bilirubin, Total 0.5 mg/dL (0.2-1.0); Calcium 9.9 mg/dL (8.5-10.1); Magnesium 2.5 mg/dL (1.6-2.6); Phosphorus 3.3 mg/dL (2.5-4.90); Total Protein 7.2 g/dL (6.4-8.2)
[2020-04-02] MEDS: BUDESONIDE (INHALATION) 180 MCG IH IN SCH ×2 (07:05→21:38)
[2020-04-02 08:00] VITALS: BP 134/80
[2020-04-02] MEDS: FUROSEMIDE 40 MG/4 ML VIAL IV SCH (09:14)
[2020-04-02] MEDS: CEFEPIME 1 GM in NS 0.9% 50 ML IV SCH ×2 (09:15→21:39)
[2020-04-02] MEDS: ASCORBIC ACID 500 MG TAB PO SCH ×2 (09:15→21:17)
[2020-04-02] MEDS: PANTOPRAZOLE 40 MG/10 ML VIAL INJ IV SCH (09:15)
[2020-04-02] MEDS: SODIUM CHLOR 0.9% PF (SALINE LOCK) 10ML VIAL/SYR IV SCH ×2 (09:15→21:39)
[2020-04-02] MEDS: ENOXAPARIN SOD 80 MG/0.8ML SYRINGE SC SCH ×2 (09:15→21:40)
[2020-04-02] MEDS ORDERED: TPN PER PHARMACY 0 ML IV SCH (11:00)
[2020-04-02] MEDS ORDERED: LACTULOSE 20Gm/30ML SOLN PO ONE (12:15)
[2020-04-02 14:00] VITALS: BP 126/89
[2020-04-02] MEDS ORDERED: TPN PER PHARMACY IV NR ×7 (20:00)
[2020-04-03] VITALS: BP 131/85
[2020-04-03] MEDS: MORPHINE SULF INJ 2 MG/ML SYRINGE 1ML IV PRN ×6 (01:28→23:18)
[2020-04-03] MEDS: ACCU-CHEK COMFORT CURVE STRIP VI SCH ×4 (06:09→23:49)
[2020-04-03] MEDS: InsuLIN REG 1unit/0.01ml Soln (100units/ml) SC SCH ×4 (06:10→23:50)
[2020-04-03] MEDS: ALBUTEROL SULF HFA 90MCG INH 200DOSE IN PRN (06:45)
[2020-04-03] MEDS: BUDESONIDE (INHALATION) 180 MCG IH IN SCH ×2 (06:45→22:00)
[2020-04-03 06:51] LABS: Albumin 2.4 g/dL (3.4-5.0); BUN/Creatinine Ratio 48.4; Bilirubin, Total 0.4 mg/dL (0.2-1.0); Calcium 10.3 mg/dL (8.5-10.1); Magnesium 2.4 mg/dL (1.6-2.6); Phosphorus 2.7 mg/dL (2.5-4.90); Total Protein 7.5 g/dL (6.4-8.2)
[2020-04-03 08:00] VITALS: BP 123/87
[2020-04-03] MEDS: PANTOPRAZOLE 40 MG/10 ML VIAL INJ IV SCH (09:51)
[2020-04-03] MEDS: ENOXAPARIN SOD 80 MG/0.8ML SYRINGE SC SCH ×2 (09:51→21:42)
[2020-04-03] MEDS: CEFEPIME 1 GM in NS 0.9% 50 ML IV SCH ×2 (09:51→21:41)
[2020-04-03] MEDS: FUROSEMIDE 40 MG/4 ML VIAL IV SCH (09:51)
[2020-04-03] MEDS: SODIUM CHLOR 0.9% PF (SALINE LOCK) 10ML VIAL/SYR IV SCH ×2 (09:51→21:42)
[2020-04-03] MEDS: ASCORBIC ACID 500 MG TAB PO SCH ×2 (09:52→21:42)
[2020-04-03 16:00] VITALS: BP 131/79
[2020-04-03] MEDS ORDERED: TPN PER PHARMACY IV NR ×7 (20:00)
[2020-04-04] VITALS: BP 128/75
[2020-04-04] MEDS: MORPHINE SULF INJ 2 MG/ML SYRINGE 1ML IV PRN ×5 (02:31→19:45)
[2020-04-04] MEDS: ACCU-CHEK COMFORT CURVE STRIP VI SCH ×4 (05:36→23:04)
[2020-04-04] MEDS: InsuLIN REG 1unit/0.01ml Soln (100units/ml) SC SCH ×4 (05:40→23:02)
[2020-04-04] MEDS: BUDESONIDE (INHALATION) 180 MCG IH IN SCH ×2 (05:56→22:00)
[2020-04-04 06:52] LABS: Potassium 3.8 mmol/L (3.5-5.1)
[2020-04-04 07:04] LABS: Albumin 2.5 g/dL (3.4-5.0); Bilirubin, Total 0.6 mg/dL (0.2-1.0); Magnesium 2.5 mg/dL (1.6-2.6); Phosphorus 2.8 mg/dL (2.5-4.90); Pre Albumin 32.9 mg/dL (20.0-40.0); Total Protein 7.4 g/dL (6.4-8.2)
[2020-04-04 09:00] VITALS: BP 141/87
[2020-04-04 09:20] LABS: Basophils # (auto) 0.1 10 ^3/uL (0-0.2); Eosinophils # (auto) 0.7 10 ^3/uL (0-0.8); Hemoglobin 14.8 g/dL (13.5-17.5); Monocytes # (auto) 0.6 10 ^3/uL (0-1.3)
[2020-04-04 09:22] LABS: Basophils % (auto) 0.8 % (0.0-2.0); Eosinophils % (auto) 5.6 % (0.0-7.0); Hematocrit 47.5 % (41.0-53.0); Lymphocytes % (auto) 7.8 % (10.0-50.0); Mean Corpuscular Hgb Conc. 31.2 g/dL (32.0-36.0); Mean Corpuscular Volume 86.4 fL (80.0-100.0); Neutrophils # (auto) 10.3 10 ^3/uL (1.6-8.6); Neutrophils % (auto) 80.8 % (37.0-80.0); Nucleated Red Blood Cells % 0.1 %; Platelet Count (auto) 336 10^3/uL (140-450); Red Cell Distribution Width 14.3 % (11.8-14.3); White Blood Cell 12.8 10^3/uL (4.4-10.8)
[2020-04-04] MEDS: ASCORBIC ACID 500 MG TAB PO SCH ×2 (10:00→21:10)
[2020-04-04] MEDS: CEFEPIME 1 GM in NS 0.9% 50 ML IV SCH ×2 (10:14→21:27)
[2020-04-04] MEDS: FUROSEMIDE 40 MG/4 ML VIAL IV SCH (10:14)
[2020-04-04] MEDS: SODIUM CHLOR 0.9% PF (SALINE LOCK) 10ML VIAL/SYR IV SCH ×2 (10:14→21:10)
[2020-04-04] MEDS: ENOXAPARIN SOD 80 MG/0.8ML SYRINGE SC SCH ×2 (10:14→21:11)
[2020-04-04] MEDS: PANTOPRAZOLE 40 MG/10 ML VIAL INJ IV SCH (10:14)
[2020-04-04 16:00] VITALS: BP 116/81
[2020-04-04] MEDS ORDERED: AMINO ACID INFUSION IN D10W 1,000 ML IV NR (20:00)
[2020-04-04] MEDS ORDERED: TPN PER PHARMACY IV NR ×10 (20:00)
[2020-04-04] MEDS ORDERED: APIXABAN 5 MG TAB PO SCH (22:00)
[2020-04-04 23:57] VITALS: BP 138/87
[2020-04-05] MEDS: MORPHINE SULF INJ 2 MG/ML SYRINGE 1ML IV PRN ×7 (02:03→22:11)
[2020-04-05] MEDS: InsuLIN REG 1unit/0.01ml Soln (100units/ml) SC SCH ×4 (05:28→23:37)
[2020-04-05] MEDS: ACCU-CHEK COMFORT CURVE STRIP VI SCH ×3 (05:30→17:11)
[2020-04-05 06:45] LABS: Potassium 4.2 mmol/L (3.5-5.1)
[2020-04-05] MEDS: BUDESONIDE (INHALATION) 180 MCG IH IN SCH ×2 (07:20→08:54)
[2020-04-05 07:38] LABS: BUN/Creatinine Ratio 53.3; Magnesium 2.3 mg/dL (1.6-2.6)
[2020-04-05] MEDS: ASCORBIC ACID 500 MG TAB PO SCH ×2 (08:24→21:28)
[2020-04-05 08:37] LABS: Bilirubin, Total 0.9 mg/dL (0.2-1.0); Phosphorus 3.3 mg/dL (2.5-4.90); Total Protein 7.5 g/dL (6.4-8.2)
[2020-04-05] MEDS: PANTOPRAZOLE 40 MG/10 ML VIAL INJ IV SCH (08:55)
[2020-04-05] MEDS: SODIUM CHLOR 0.9% PF (SALINE LOCK) 10ML VIAL/SYR IV SCH ×2 (08:55→21:28)
[2020-04-05] MEDS: ENOXAPARIN SOD 80 MG/0.8ML SYRINGE SC SCH ×2 (08:55→22:12)
[2020-04-05] MEDS: FUROSEMIDE 40 MG/4 ML VIAL IV SCH (08:56)
[2020-04-05] MEDS: CEFEPIME 1 GM in NS 0.9% 50 ML IV SCH ×2 (08:56→21:31)
[2020-04-05 09:00] VITALS: BP 136/82
[2020-04-05] MEDS ORDERED: TPN PER PHARMACY IV NR ×19 (10:00→20:00)
[2020-04-05] MEDS: LORazepam 2MG/ML-1ML VIAL IV PRN (11:48)
[2020-04-05 16:00] VITALS: BP 168/81
[2020-04-05 20:00] VITALS: BP 155/78
[2020-04-06] MEDS: ACCU-CHEK COMFORT CURVE STRIP VI SCH ×4 (00:25→17:32)
[2020-04-06 00:34] VITALS: BP 124/78
[2020-04-06] MEDS: MORPHINE SULF INJ 2 MG/ML SYRINGE 1ML IV PRN ×6 (02:12→21:04)
[2020-04-06] MEDS: LORazepam 2MG/ML-1ML VIAL IV PRN (05:01)
[2020-04-06] MEDS: InsuLIN REG 1unit/0.01ml Soln (100units/ml) SC SCH ×3 (06:09→17:33)
[2020-04-06 06:29] LABS: Basophils # (auto) 0.1 10 ^3/uL (0-0.2); Basophils % (auto) 0.8 % (0.0-2.0); Eosinophils # (auto) 0.7 10 ^3/uL (0-0.8); Eosinophils % (auto) 5.2 % (0.0-7.0); Hematocrit 43.6 % (41.0-53.0); Hemoglobin 14.1 g/dL (13.5-17.5); Lymphocytes # (auto) 1.1 10 ^3/uL (0.4-5.4); Mean Corpuscular Hemoglobin 27.5 pg (28.0-32.0); Mean Corpuscular Hgb Conc. 32.4 g/dL (32.0-36.0); Mean Corpuscular Volume 84.8 fL (80.0-100.0); Monocytes # (auto) 0.7 10 ^3/uL (0-1.3); Monocytes % (auto) 5.7 % (0.0-12.0); Neutrophils % (auto) 79.3 % (37.0-80.0); Nucleated Red Blood Cells % 0.1 %; Platelet Count (auto) 189 10^3/uL (140-450); Red Blood Cells 5.14 10^6/uL (4.5-5.90); White Blood Cell 12.6 10^3/uL (4.4-10.8)
[2020-04-06 08:00] VITALS: BP 134/90
[2020-04-06 08:09] LABS: Potassium 4.3 mmol/L (3.5-5.1)
[2020-04-06 08:26] LABS: Albumin 2.7 g/dL (3.4-5.0); BUN/Creatinine Ratio 58.8; Calcium 9.7 mg/dL (8.5-10.1); Magnesium 2.6 mg/dL (1.6-2.6); Total Protein 7.3 g/dL (6.4-8.2)
[2020-04-06] MEDS: CEFEPIME 1 GM in NS 0.9% 50 ML IV SCH ×2 (08:45→21:13)
[2020-04-06] MEDS: ASCORBIC ACID 500 MG TAB PO SCH ×2 (08:45→21:13)
[2020-04-06] MEDS: PANTOPRAZOLE 40 MG/10 ML VIAL INJ IV SCH (08:45)
[2020-04-06] MEDS: SODIUM CHLOR 0.9% PF (SALINE LOCK) 10ML VIAL/SYR IV SCH ×2 (08:45→21:13)
[2020-04-06] MEDS: FUROSEMIDE 40 MG/4 ML VIAL IV SCH (08:45)
[2020-04-06] MEDS: ENOXAPARIN SOD 80 MG/0.8ML SYRINGE SC SCH ×2 (08:46→21:13)
[2020-04-06] MEDS: BUDESONIDE (INHALATION) 180 MCG IH IN SCH ×2 (08:54→18:58)
[2020-04-06] MEDS: ALBUTEROL SULF HFA 90MCG INH 200DOSE IN PRN ×2 (08:54→20:46)
[2020-04-06] MEDS ORDERED: SODIUM CHLORIDE 0.9% 1,000 ML IV ONE (13:30)
[2020-04-06 16:00] VITALS: BP 130/85
[2020-04-06] MEDS ORDERED: TPN PER PHARMACY IV NR ×10 (20:00)
[2020-04-06] MEDS: METOPROLOL TARTRATE 25 MG TAB PO SCH (21:14)
[2020-04-07] VITALS: BP 135/86
[2020-04-07] MEDS: InsuLIN REG 1unit/0.01ml Soln (100units/ml) SC SCH ×2 (00:10→05:33)
[2020-04-07] MEDS: MORPHINE SULF INJ 2 MG/ML SYRINGE 1ML IV PRN ×7 (02:58→23:13)
[2020-04-07] MEDS: ACCU-CHEK COMFORT CURVE STRIP VI SCH ×2 (05:30)
[2020-04-07 08:00] VITALS: BP 122/77
[2020-04-07] MEDS: SODIUM CHLOR 0.9% PF (SALINE LOCK) 10ML VIAL/SYR IV SCH ×2 (10:02→21:25)
[2020-04-07] MEDS: APIXABAN 5 MG TAB PO SCH ×2 (10:02→21:26)
[2020-04-07] MEDS: METOPROLOL TARTRATE 25 MG TAB PO SCH ×2 (10:02→21:26)
[2020-04-07] MEDS: ASCORBIC ACID 500 MG TAB PO SCH ×2 (10:03→21:27)
[2020-04-07] MEDS: PANTOPRAZOLE 40 MG TAB PO SCH (10:03)
[2020-04-07] MEDS: oxyCODONE ER 10 MG TAB PO SCH ×2 (14:02→21:27)
[2020-04-07 16:00] VITALS: BP 125/90
[2020-04-07] MEDS: BUDESONIDE (INHALATION) 180 MCG IH IN SCH (20:29)
[2020-04-07] MEDS: AMIODARONE HCL 200 MG TAB PO SCH (21:26)
[2020-04-07 23:01] LABS: Albumin 2.9 g/dL (3.4-5.0); Calcium 9.6 mg/dL (8.5-10.1); Magnesium 2.3 mg/dL (1.6-2.6); Potassium 4.8 mmol/L (3.5-5.1)
[2020-04-07 23:04] LABS: BUN/Creatinine Ratio 47.5; Phosphorus 3.4 mg/dL (2.5-4.90)
[2020-04-08] VITALS: BP 114/76
[2020-04-08] MEDS: oxyCODONE ER 10 MG TAB PO SCH ×3 (05:12→23:08)
[2020-04-08] MEDS: MORPHINE SULF INJ 2 MG/ML SYRINGE 1ML IV PRN (06:29)
[2020-04-08] MEDS: BUDESONIDE (INHALATION) 180 MCG IH IN SCH ×2 (06:40→19:41)
[2020-04-08 08:00] VITALS: BP 131/95
[2020-04-08] MEDS: AMIODARONE HCL 200 MG TAB PO SCH ×2 (09:25→23:04)
[2020-04-08] MEDS: SODIUM CHLOR 0.9% PF (SALINE LOCK) 10ML VIAL/SYR IV SCH ×2 (09:25→23:03)
[2020-04-08] MEDS: APIXABAN 5 MG TAB PO SCH ×2 (09:26→23:04)
[2020-04-08] MEDS: METOPROLOL TARTRATE 25 MG TAB PO SCH ×2 (09:27→23:07)
[2020-04-08] MEDS: PANTOPRAZOLE 40 MG TAB PO SCH (09:27)
[2020-04-08] MEDS: ASCORBIC ACID 500 MG TAB PO SCH ×2 (09:27→23:08)
[2020-04-08 11:23] LABS: Basophils # (auto) 0.1 10 ^3/uL (0-0.2); Basophils % (auto) 0.8 % (0.0-2.0); Eosinophils # (auto) 0.8 10 ^3/uL (0-0.8); Eosinophils % (auto) 6.2 % (0.0-7.0); Hematocrit 39.1 % (41.0-53.0); Hemoglobin 12.8 g/dL (13.5-17.5); Lymphocytes # (auto) 1.1 10 ^3/uL (0.4-5.4); Lymphocytes % (auto) 9.1 % (10.0-50.0); Mean Corpuscular Hemoglobin 27.8 pg (28.0-32.0); Mean Corpuscular Hgb Conc. 32.6 g/dL (32.0-36.0); Mean Corpuscular Volume 85.2 fL (80.0-100.0); Monocytes # (auto) 0.7 10 ^3/uL (0-1.3); Neutrophils # (auto) 9.5 10 ^3/uL (1.6-8.6); Neutrophils % (auto) 77.9 % (37.0-80.0); Nucleated Red Blood Cells % 0.1 %; Platelet Count (auto) 189 10^3/uL (140-450); Red Blood Cells 4.59 10^6/uL (4.5-5.90); Red Cell Distribution Width 14.3 % (11.8-14.3); White Blood Cell 12.1 10^3/uL (4.4-10.8)
[2020-04-08] MEDS ORDERED: DexAMETHasone SOD PHOS 4 MG/1ML SDV INJ IV ONE (13:00)
[2020-04-08] MEDS ORDERED: ASCORBIC ACID 500 MG TAB PO ONE (13:00)
[2020-04-08] MEDS ORDERED: CHOLECALCIFEROL (VITD3) 2,000 UNIT CAP/TAB PO ONE (13:00)
[2020-04-08] MEDS ORDERED: ZINC SULFATE 220mg CAP or TAB PO ONE (13:00)
[2020-04-08] MEDS: DOCUSATE SOD 100 MG CAP PO PRN (15:39)
[2020-04-08 16:00] VITALS: BP 116/79
[2020-04-08] MEDS: ALBUTEROL SULF HFA 90MCG INH 200DOSE IN PRN (19:41)
[2020-04-09] VITALS: BP 114/79
[2020-04-09] MEDS: MORPHINE SULF INJ 2 MG/ML SYRINGE 1ML IV PRN ×3 (03:28→19:52)
[2020-04-09] MEDS: oxyCODONE ER 10 MG TAB PO SCH ×3 (06:18→22:14)
[2020-04-09] MEDS: BUDESONIDE (INHALATION) 180 MCG IH IN SCH ×2 (07:49→22:45)
[2020-04-09] MEDS: ALBUTEROL SULF HFA 90MCG INH 200DOSE IN PRN ×2 (07:50→22:45)
[2020-04-09 08:00] VITALS: BP_SYST 121; BP_SYST 127; BP_DIAS 75; BP_DIAS 80
[2020-04-09] MEDS: AMIODARONE HCL 200 MG TAB PO SCH ×2 (09:09→22:13)
[2020-04-09] MEDS: DexAMETHasone SOD PHOS 4 MG/1ML SDV INJ IV SCH (09:09)
[2020-04-09] MEDS: SODIUM CHLOR 0.9% PF (SALINE LOCK) 10ML VIAL/SYR IV SCH ×2 (09:09→22:13)
[2020-04-09] MEDS: ZINC SULFATE 220mg CAP or TAB PO SCH (09:09)
[2020-04-09] MEDS: APIXABAN 5 MG TAB PO SCH ×2 (09:10→22:13)
[2020-04-09] MEDS: METOPROLOL TARTRATE 25 MG TAB PO SCH ×2 (09:10→22:14)
[2020-04-09] MEDS: ASCORBIC ACID 500 MG TAB PO SCH ×2 (09:11→10:00)
[2020-04-09] MEDS: CHOLECALCIFEROL (VITD3) 2,000 UNIT CAP/TAB PO SCH (09:11)
[2020-04-09] MEDS: PANTOPRAZOLE 40 MG TAB PO SCH (10:47)
[2020-04-09 16:00] VITALS: BP 121/80
[2020-04-10] VITALS: BP 114/71
[2020-04-10] MEDS: MORPHINE SULF INJ 2 MG/ML SYRINGE 1ML IV PRN ×3 (01:12→20:00)
[2020-04-10] MEDS: oxyCODONE ER 10 MG TAB PO SCH ×3 (06:17→22:12)
[2020-04-10 06:55] LABS: Basophils # (auto) 0 10 ^3/uL (0-0.2); Basophils % (auto) 0.3 % (0.0-2.0); Eosinophils # (auto) 0.9 10 ^3/uL (0-0.8); Eosinophils % (auto) 6.1 % (0.0-7.0); Hematocrit 33.4 % (41.0-53.0); Hemoglobin 10.9 g/dL (13.5-17.5); Lymphocytes # (auto) 1.9 10 ^3/uL (0.4-5.4); Lymphocytes % (auto) 13.3 % (10.0-50.0); Mean Corpuscular Hemoglobin 27.2 pg (28.0-32.0); Mean Corpuscular Hgb Conc. 32.6 g/dL (32.0-36.0); Mean Corpuscular Volume 83.5 fL (80.0-100.0); Monocytes # (auto) 0.8 10 ^3/uL (0-1.3); Monocytes % (auto) 5.4 % (0.0-12.0); Neutrophils % (auto) 74.9 % (37.0-80.0); Platelet Count (auto) 168 10^3/uL (140-450); Red Cell Distribution Width 13.6 % (11.8-14.3); White Blood Cell 14.6 10^3/uL (4.4-10.8)
[2020-04-10 07:15] LABS: Calcium 9.7 mg/dL (8.5-10.1); Potassium 4.7 mmol/L (3.5-5.1)
[2020-04-10 07:17] LABS: BUN/Creatinine Ratio 47.2
[2020-04-10 08:00] VITALS: BP 123/71
[2020-04-10] MEDS: DexAMETHasone SOD PHOS 4 MG/1ML SDV INJ IV SCH (09:25)
[2020-04-10] MEDS: SODIUM CHLOR 0.9% PF (SALINE LOCK) 10ML VIAL/SYR IV SCH ×2 (09:25→22:13)
[2020-04-10] MEDS: AMIODARONE HCL 200 MG TAB PO SCH ×2 (09:25→22:12)
[2020-04-10] MEDS: ZINC SULFATE 220mg CAP or TAB PO SCH (09:25)
[2020-04-10] MEDS: APIXABAN 5 MG TAB PO SCH ×2 (09:26→22:12)
[2020-04-10] MEDS: METOPROLOL TARTRATE 25 MG TAB PO SCH ×2 (09:26→22:12)
[2020-04-10] MEDS: CHOLECALCIFEROL (VITD3) 2,000 UNIT CAP/TAB PO SCH (09:27)
[2020-04-10] MEDS: PANTOPRAZOLE 40 MG TAB PO SCH (09:27)
[2020-04-10] MEDS: ASCORBIC ACID 500 MG TAB PO SCH (09:27)
[2020-04-10] MEDS: BUDESONIDE (INHALATION) 180 MCG IH IN SCH ×2 (10:00→19:09)
[2020-04-10] MEDS: ALBUTEROL SULF HFA 90MCG INH 200DOSE IN PRN (11:43)
[2020-04-10 15:56] VITALS: BP 117/73
[2020-04-10 20:00] VITALS: BP 113/72
[2020-04-11] VITALS: BP 124/74
[2020-04-11] MEDS: MORPHINE SULF INJ 2 MG/ML SYRINGE 1ML IV PRN (02:35)
[2020-04-11] MEDS: BUDESONIDE (INHALATION) 180 MCG IH IN SCH ×2 (06:01→18:22)
[2020-04-11] MEDS: ALBUTEROL SULF HFA 90MCG INH 200DOSE IN PRN ×2 (06:01→20:02)
[2020-04-11] MEDS: oxyCODONE ER 10 MG TAB PO SCH ×3 (06:15→22:12)
[2020-04-11] MEDS: DOCUSATE SOD 100 MG CAP PO PRN (06:15)
[2020-04-11 08:00] VITALS: BP 119/73
[2020-04-11] MEDS: SODIUM CHLOR 0.9% PF (SALINE LOCK) 10ML VIAL/SYR IV SCH ×2 (08:50→22:10)
[2020-04-11] MEDS: DexAMETHasone SOD PHOS 4 MG/1ML SDV INJ IV SCH (08:50)
[2020-04-11] MEDS: APIXABAN 5 MG TAB PO SCH ×2 (08:51→22:11)
[2020-04-11] MEDS: PANTOPRAZOLE 40 MG TAB PO SCH (08:51)
[2020-04-11] MEDS: ZINC SULFATE 220mg CAP or TAB PO SCH (08:51)
[2020-04-11] MEDS: ASCORBIC ACID 500 MG TAB PO SCH (08:51)
[2020-04-11] MEDS: METOPROLOL TARTRATE 25 MG TAB PO SCH ×2 (08:52→22:11)
[2020-04-11] MEDS: AMIODARONE HCL 200 MG TAB PO SCH ×2 (08:52→22:11)
[2020-04-11] MEDS: CHOLECALCIFEROL (VITD3) 2,000 UNIT CAP/TAB PO SCH (10:16)
[2020-04-11 16:00] VITALS: BP 137/95
[2020-04-12] VITALS: BP 127/75
[2020-04-12] MEDS: MORPHINE SULF INJ 2 MG/ML SYRINGE 1ML IV PRN ×4 (01:49→23:01)
[2020-04-12] MEDS: ALBUTEROL SULF HFA 90MCG INH 200DOSE IN PRN ×2 (06:00→19:16)
[2020-04-12] MEDS: BUDESONIDE (INHALATION) 180 MCG IH IN SCH ×2 (06:00→19:15)
[2020-04-12] MEDS: oxyCODONE ER 10 MG TAB PO SCH ×3 (06:00→21:43)
[2020-04-12 08:00] VITALS: BP 143/68
[2020-04-12] MEDS: ZINC SULFATE 220mg CAP or TAB PO SCH (09:42)
[2020-04-12] MEDS: AMIODARONE HCL 200 MG TAB PO SCH ×2 (09:42→21:44)
[2020-04-12] MEDS: SODIUM CHLOR 0.9% PF (SALINE LOCK) 10ML VIAL/SYR IV SCH ×2 (09:42→21:43)
[2020-04-12] MEDS: DexAMETHasone SOD PHOS 4 MG/1ML SDV INJ IV SCH (09:42)
[2020-04-12] MEDS: ASCORBIC ACID 500 MG TAB PO SCH (09:43)
[2020-04-12] MEDS: APIXABAN 5 MG TAB PO SCH ×2 (09:43→21:43)
[2020-04-12] MEDS: PANTOPRAZOLE 40 MG TAB PO SCH (09:43)
[2020-04-12] MEDS: METOPROLOL TARTRATE 25 MG TAB PO SCH ×2 (09:43→21:44)
[2020-04-12] MEDS: CHOLECALCIFEROL (VITD3) 2,000 UNIT CAP/TAB PO SCH (09:44)
[2020-04-12] MEDS: ERGOCALCIFEROL 50,000 UNIT(1.25MG) CAP PO SCH (11:15)
[2020-04-12] MEDS ORDERED: FUROSEMIDE 40 MG/4 ML VIAL IV ONE (11:15)
[2020-04-12 16:00] VITALS: BP 109/64
[2020-04-13] VITALS: BP 97/72
[2020-04-13] MEDS: MORPHINE SULF INJ 2 MG/ML SYRINGE 1ML IV PRN (04:30)
[2020-04-13] MEDS: oxyCODONE ER 10 MG TAB PO SCH ×3 (05:54→21:44)
[2020-04-13] MEDS: ALBUTEROL SULF HFA 90MCG INH 200DOSE IN PRN ×2 (06:21→19:12)
[2020-04-13] MEDS: BUDESONIDE (INHALATION) 180 MCG IH IN SCH ×2 (06:21→19:12)
[2020-04-13 08:25] VITALS: BP 131/67
[2020-04-13] MEDS: APIXABAN 5 MG TAB PO SCH ×2 (09:58→21:43)
[2020-04-13] MEDS: AMIODARONE HCL 200 MG TAB PO SCH ×2 (09:58→21:43)
[2020-04-13] MEDS: PANTOPRAZOLE 40 MG TAB PO SCH (09:58)
[2020-04-13] MEDS: ASCORBIC ACID 500 MG TAB PO SCH (09:58)
[2020-04-13] MEDS: DexAMETHasone SOD PHOS 4 MG/1ML SDV INJ IV SCH (09:58)
[2020-04-13] MEDS: ZINC SULFATE 220mg CAP or TAB PO SCH (09:58)
[2020-04-13] MEDS: METOPROLOL TARTRATE 25 MG TAB PO SCH ×2 (09:59→21:44)
[2020-04-13] MEDS: SODIUM CHLOR 0.9% PF (SALINE LOCK) 10ML VIAL/SYR IV SCH ×2 (10:00→21:43)
[2020-04-13 16:00] VITALS: BP 119/69
[2020-04-13 21:33] VITALS: BP 133/106
[2020-04-13] MEDS ORDERED: SODIUM CHLORIDE 0.9% 1,000 ML IV SCH (23:15)
[2020-04-14] VITALS: BP 121/81
[2020-04-14] MEDS: MORPHINE SULF INJ 2 MG/ML SYRINGE 1ML IV PRN ×3 (01:03→19:48)
[2020-04-14] MEDS: oxyCODONE ER 10 MG TAB PO SCH ×3 (06:05→21:43)
[2020-04-14] MEDS: BUDESONIDE (INHALATION) 180 MCG IH IN SCH ×2 (06:55→20:25)
[2020-04-14] MEDS: ALBUTEROL SULF HFA 90MCG INH 200DOSE IN PRN ×2 (06:55→20:25)
[2020-04-14 08:00] VITALS: BP 125/93
[2020-04-14] MEDS: AMIODARONE HCL 200 MG TAB PO SCH ×2 (10:14→21:42)
[2020-04-14] MEDS: ZINC SULFATE 220mg CAP or TAB PO SCH (10:14)
[2020-04-14] MEDS: PANTOPRAZOLE 40 MG TAB PO SCH (10:15)
[2020-04-14] MEDS: DexAMETHasone SOD PHOS 4 MG/1ML SDV INJ IV SCH (10:15)
[2020-04-14] MEDS: SODIUM CHLOR 0.9% PF (SALINE LOCK) 10ML VIAL/SYR IV SCH ×2 (10:15→21:41)
[2020-04-14] MEDS: APIXABAN 5 MG TAB PO SCH ×2 (10:15→21:42)
[2020-04-14] MEDS: ASCORBIC ACID 500 MG TAB PO SCH (10:15)
[2020-04-14] MEDS: METOPROLOL TARTRATE 25 MG TAB PO SCH ×2 (10:20→21:42)
[2020-04-14 16:00] VITALS: BP 116/63
[2020-04-15] MEDS: oxyCODONE ER 10 MG TAB PO SCH ×3 (05:42→21:42)
[2020-04-15 08:00] VITALS: BP 119/66
[2020-04-15] MEDS: BUDESONIDE (INHALATION) 180 MCG IH IN SCH ×2 (08:29→20:50)
[2020-04-15] MEDS: ALBUTEROL SULF HFA 90MCG INH 200DOSE IN PRN ×2 (08:29→20:50)
[2020-04-15] MEDS: DexAMETHasone SOD PHOS 4 MG/1ML SDV INJ IV SCH (09:45)
[2020-04-15] MEDS: SODIUM CHLOR 0.9% PF (SALINE LOCK) 10ML VIAL/SYR IV SCH ×2 (09:45→21:38)
[2020-04-15] MEDS: AMIODARONE HCL 200 MG TAB PO SCH ×2 (09:46→21:39)
[2020-04-15] MEDS: PANTOPRAZOLE 40 MG TAB PO SCH (09:46)
[2020-04-15] MEDS: APIXABAN 5 MG TAB PO SCH ×2 (09:46→21:39)
[2020-04-15] MEDS: ASCORBIC ACID 500 MG TAB PO SCH (09:46)
[2020-04-15] MEDS: ZINC SULFATE 220mg CAP or TAB PO SCH (09:46)
[2020-04-15] MEDS: METOPROLOL TARTRATE 25 MG TAB PO SCH ×2 (09:48→21:40)
[2020-04-15] MEDS: MORPHINE SULF INJ 2 MG/ML SYRINGE 1ML IV PRN ×2 (09:48→18:38)
[2020-04-15 14:49] LABS: Hematocrit 34.1 % (41.0-53.0); Hemoglobin 11.3 g/dL (13.5-17.5)
[2020-04-15 16:11] VITALS: BP 111/77
[2020-04-15] MEDS: DOCUSATE SOD 100 MG CAP PO PRN (21:43)
[2020-04-16] VITALS: BP 123/74
[2020-04-16] MEDS: oxyCODONE ER 10 MG TAB PO SCH ×3 (05:52→21:40)
[2020-04-16 08:00] VITALS: BP 112/69
[2020-04-16] MEDS: ALBUTEROL SULF HFA 90MCG INH 200DOSE IN PRN ×2 (10:17→20:08)
[2020-04-16] MEDS: BUDESONIDE (INHALATION) 180 MCG IH IN SCH ×2 (10:17→18:51)
[2020-04-16] MEDS: DexAMETHasone SOD PHOS 4 MG/1ML SDV INJ IV SCH (10:39)
[2020-04-16] MEDS: SODIUM CHLOR 0.9% PF (SALINE LOCK) 10ML VIAL/SYR IV SCH ×2 (10:40→21:46)
[2020-04-16] MEDS: AMIODARONE HCL 200 MG TAB PO SCH ×2 (10:40→21:41)
[2020-04-16] MEDS: APIXABAN 5 MG TAB PO SCH ×2 (10:40→21:43)
[2020-04-16] MEDS: ZINC SULFATE 220mg CAP or TAB PO SCH (10:40)
[2020-04-16] MEDS: PANTOPRAZOLE 40 MG TAB PO SCH (10:41)
[2020-04-16] MEDS: METOPROLOL TARTRATE 25 MG TAB PO SCH ×2 (10:41→21:43)
[2020-04-16] MEDS: ASCORBIC ACID 500 MG TAB PO SCH (10:41)
[2020-04-16] MEDS: DOCUSATE SOD 100 MG CAP PO PRN (10:45)
[2020-04-16 12:27] LABS: Basophils # (auto) 0 10 ^3/uL (0-0.2); Basophils % (auto) 0.1 % (0.0-2.0); Eosinophils # (auto) 0.9 10 ^3/uL (0-0.8); Eosinophils % (auto) 7.6 % (0.0-7.0); Hematocrit 34.1 % (41.0-53.0); Hemoglobin 11.3 g/dL (13.5-17.5); Lymphocytes # (auto) 0.6 10 ^3/uL (0.4-5.4); Lymphocytes % (auto) 4.8 % (10.0-50.0); Mean Corpuscular Hemoglobin 27.6 pg (28.0-32.0); Mean Corpuscular Hgb Conc. 33.1 g/dL (32.0-36.0); Mean Corpuscular Volume 83.5 fL (80.0-100.0); Monocytes # (auto) 0.3 10 ^3/uL (0-1.3); Monocytes % (auto) 2.9 % (0.0-12.0); Neutrophils % (auto) 84.6 % (37.0-80.0); Nucleated Red Blood Cells % 0.1 %; Platelet Count (auto) 217 10^3/uL (140-450); Red Blood Cells 4.08 10^6/uL (4.5-5.90); Red Cell Distribution Width 14.3 % (11.8-14.3); White Blood Cell 11.8 10^3/uL (4.4-10.8)
[2020-04-16 12:44] LABS: Calcium 7.4 mg/dL (8.5-10.1); Potassium 4.4 mmol/L (3.5-5.1)
[2020-04-16 12:47] LABS: BUN/Creatinine Ratio 26.9
[2020-04-16 16:00] VITALS: BP 105/67
[2020-04-17 00:04] VITALS: BP 127/84
[2020-04-17] MEDS: oxyCODONE ER 10 MG TAB PO SCH ×3 (06:55→21:43)
[2020-04-17] MEDS: BUDESONIDE (INHALATION) 180 MCG IH IN SCH ×2 (07:40→18:18)
[2020-04-17] MEDS: ALBUTEROL SULF HFA 90MCG INH 200DOSE IN PRN ×2 (07:40→18:18)
[2020-04-17 08:00] VITALS: BP 114/68
[2020-04-17] MEDS: APIXABAN 5 MG TAB PO SCH ×2 (09:25→21:43)
[2020-04-17] MEDS: ZINC SULFATE 220mg CAP or TAB PO SCH (09:25)
[2020-04-17] MEDS: AMIODARONE HCL 200 MG TAB PO SCH ×2 (09:25→21:43)
[2020-04-17] MEDS: SODIUM CHLOR 0.9% PF (SALINE LOCK) 10ML VIAL/SYR IV SCH ×2 (09:25→21:43)
[2020-04-17] MEDS: DexAMETHasone SOD PHOS 4 MG/1ML SDV INJ IV SCH (09:25)
[2020-04-17] MEDS: METOPROLOL TARTRATE 25 MG TAB PO SCH ×2 (09:26→21:55)
[2020-04-17] MEDS: PANTOPRAZOLE 40 MG TAB PO SCH (09:26)
[2020-04-17] MEDS: ASCORBIC ACID 500 MG TAB PO SCH (09:26)
[2020-04-17 16:00] VITALS: BP 106/66
[2020-04-17] MEDS: MORPHINE SULF INJ 2 MG/ML SYRINGE 1ML IV PRN (18:46)
[2020-04-18] VITALS: BP 104/60
[2020-04-18] MEDS: LORazepam 0.5 MG TAB PO PRN (00:41)
[2020-04-18] MEDS: MORPHINE SULF INJ 2 MG/ML SYRINGE 1ML IV PRN ×2 (01:50→10:52)
[2020-04-18 05:53] LABS: Basophils # (auto) 0 10 ^3/uL (0-0.2); Basophils % (auto) 0.2 % (0.0-2.0); Eosinophils # (auto) 0.3 10 ^3/uL (0-0.8); Hematocrit 37.2 % (41.0-53.0); Hemoglobin 12.3 g/dL (13.5-17.5); Lymphocytes # (auto) 0.9 10 ^3/uL (0.4-5.4); Lymphocytes % (auto) 8.1 % (10.0-50.0); Mean Corpuscular Hemoglobin 27.6 pg (28.0-32.0); Mean Corpuscular Hgb Conc. 33.1 g/dL (32.0-36.0); Mean Corpuscular Volume 83.6 fL (80.0-100.0); Monocytes # (auto) 0.4 10 ^3/uL (0-1.3); Monocytes % (auto) 3.8 % (0.0-12.0); Neutrophils # (auto) 9.7 10 ^3/uL (1.6-8.6); Neutrophils % (auto) 84.9 % (37.0-80.0); Platelet Count (auto) 293 10^3/uL (140-450); Red Blood Cells 4.45 10^6/uL (4.5-5.90); Red Cell Distribution Width 14.6 % (11.8-14.3); White Blood Cell 11.5 10^3/uL (4.4-10.8)
[2020-04-18 06:09] LABS: INR 1.13 (0.9-1.15)
[2020-04-18] MEDS: oxyCODONE ER 10 MG TAB PO SCH ×3 (06:14→21:45)
[2020-04-18 06:16] LABS: Potassium 4.7 mmol/L (3.5-5.1)
[2020-04-18 06:25] LABS: Albumin 3.2 g/dL (3.4-5.0); BUN/Creatinine Ratio 25.3; Bilirubin, Total 0.6 mg/dL (0.2-1.0); Calcium 9.4 mg/dL (8.5-10.1); Phosphorus 2.4 mg/dL (2.5-4.90); Total Protein 6.8 g/dL (6.4-8.2)
[2020-04-18] MEDS: BUDESONIDE (INHALATION) 180 MCG IH IN SCH ×2 (06:28→18:31)
[2020-04-18 08:00] VITALS: BP 107/70
[2020-04-18] MEDS: SODIUM CHLOR 0.9% PF (SALINE LOCK) 10ML VIAL/SYR IV SCH ×2 (09:27→21:44)
[2020-04-18] MEDS: DexAMETHasone SOD PHOS 4 MG/1ML SDV INJ IV SCH (09:27)
[2020-04-18] MEDS: ZINC SULFATE 220mg CAP or TAB PO SCH (09:27)
[2020-04-18] MEDS: AMIODARONE HCL 200 MG TAB PO SCH (09:28)
[2020-04-18] MEDS: PANTOPRAZOLE 40 MG TAB PO SCH (09:30)
[2020-04-18] MEDS: METOPROLOL TARTRATE 25 MG TAB PO SCH ×2 (09:30→21:45)
[2020-04-18] MEDS: APIXABAN 5 MG TAB PO SCH ×2 (09:30→21:45)
[2020-04-18] MEDS: ASCORBIC ACID 500 MG TAB PO SCH (09:30)
[2020-04-18] MEDS ORDERED: SODIUM CHLORIDE 0.9% 1,000 ML IV ONE (10:45)
[2020-04-18] MEDS ORDERED: LACTULOSE 20Gm/30ML SOLN PO ONE (14:00)
[2020-04-18] MEDS ORDERED: LACTULOSE 20Gm/30ML SOLN PO PRN (14:00)
[2020-04-18 16:00] VITALS: BP 110/69
[2020-04-18] MEDS: ALBUTEROL SULF HFA 90MCG INH 200DOSE IN PRN (18:31)
[2020-04-18 20:55] LABS: Urine Bacteria FEW /hpf (None Seen); Urine Blood Negative /uL (Negative); Urine Specific Gravity 1.021 (1.001-1.035); Urine WBC 1 /hpf (0 - 3)
[2020-04-19] VITALS: BP 91/65
[2020-04-19] MEDS: MORPHINE SULF INJ 2 MG/ML SYRINGE 1ML IV PRN ×3 (00:24→19:52)
[2020-04-19] MEDS: LORazepam 0.5 MG TAB PO PRN (02:03)
[2020-04-19] MEDS: oxyCODONE ER 10 MG TAB PO SCH ×3 (05:38→21:38)
[2020-04-19] MEDS: ALBUTEROL SULF HFA 90MCG INH 200DOSE IN PRN ×2 (06:54→18:42)
[2020-04-19] MEDS: BUDESONIDE (INHALATION) 180 MCG IH IN SCH ×2 (06:54→18:42)
[2020-04-19 08:00] VITALS: BP 136/66
[2020-04-19] MEDS: SODIUM CHLOR 0.9% PF (SALINE LOCK) 10ML VIAL/SYR IV SCH ×2 (10:49→21:38)
[2020-04-19] MEDS: APIXABAN 5 MG TAB PO SCH ×2 (10:50→21:37)
[2020-04-19] MEDS: AMIODARONE HCL 200 MG TAB PO SCH (10:50)
[2020-04-19] MEDS: ZINC SULFATE 220mg CAP or TAB PO SCH (10:50)
[2020-04-19] MEDS: DexAMETHasone 4 MG TAB PO SCH (10:50)
[2020-04-19] MEDS: METOPROLOL TARTRATE 25 MG TAB PO SCH ×2 (10:51→21:37)
[2020-04-19] MEDS: PANTOPRAZOLE 40 MG TAB PO SCH (10:51)
[2020-04-19] MEDS: ASCORBIC ACID 500 MG TAB PO SCH (10:51)
[2020-04-19] MEDS: ERGOCALCIFEROL 50,000 UNIT(1.25MG) CAP PO SCH (12:26)
[2020-04-19 16:28] VITALS: BP 100/73
[2020-04-20 00:13] VITALS: BP 116/75
[2020-04-20] MEDS: MORPHINE SULF INJ 2 MG/ML SYRINGE 1ML IV PRN ×2 (00:38→20:20)
[2020-04-20] MEDS: oxyCODONE ER 10 MG TAB PO SCH ×3 (05:48→22:19)
[2020-04-20] MEDS: ALBUTEROL SULF HFA 90MCG INH 200DOSE IN PRN ×2 (06:27→22:26)
[2020-04-20] MEDS: BUDESONIDE (INHALATION) 180 MCG IH IN SCH ×2 (06:27→22:26)
[2020-04-20 06:34] LABS: Hemoglobin 10.3 g/dL (13.5-17.5)
[2020-04-20 07:00] LABS: BUN/Creatinine Ratio 34.3; Potassium 4.4 mmol/L (3.5-5.1)
[2020-04-20 08:00] VITALS: BP 120/67
[2020-04-20] MEDS: SODIUM CHLOR 0.9% PF (SALINE LOCK) 10ML VIAL/SYR IV SCH ×2 (08:57→22:18)
[2020-04-20] MEDS: ZINC SULFATE 220mg CAP or TAB PO SCH (08:57)
[2020-04-20] MEDS: APIXABAN 5 MG TAB PO SCH (08:58)
[2020-04-20] MEDS: DexAMETHasone 4 MG TAB PO SCH (08:58)
[2020-04-20] MEDS: AMIODARONE HCL 200 MG TAB PO SCH (08:58)
[2020-04-20] MEDS: PANTOPRAZOLE 40 MG TAB PO SCH (08:59)
[2020-04-20] MEDS: METOPROLOL TARTRATE 25 MG TAB PO SCH ×2 (08:59→22:19)
[2020-04-20] MEDS: ASCORBIC ACID 500 MG TAB PO SCH (08:59)
[2020-04-20 14:00] VITALS: BP 97/63
[2020-04-20] MEDS ORDERED: LACTULOSE 20Gm/30ML SOLN PO ONE (14:15)
[2020-04-20] MEDS: LACTULOSE 20Gm/30ML SOLN PO SCH (22:00)
[2020-04-21] VITALS: BP 130/60
[2020-04-21] MEDS: MORPHINE SULF INJ 2 MG/ML SYRINGE 1ML IV PRN ×2 (02:08→10:46)
[2020-04-21 05:58] LABS: Hematocrit 30.8 % (41.0-53.0); Hemoglobin 10.3 g/dL (13.5-17.5)
[2020-04-21] MEDS: oxyCODONE ER 10 MG TAB PO SCH ×3 (06:15→21:59)
[2020-04-21] MEDS: ALBUTEROL SULF HFA 90MCG INH 200DOSE IN PRN ×2 (06:18→21:33)
[2020-04-21] MEDS: BUDESONIDE (INHALATION) 180 MCG IH IN SCH ×2 (06:18→21:33)
[2020-04-21 08:00] VITALS: BP 104/54
[2020-04-21 09:08] VITALS: BP 104/54
[2020-04-21] MEDS: LACTULOSE 20Gm/30ML SOLN PO SCH ×2 (09:35→22:00)
[2020-04-21] MEDS: PANTOPRAZOLE 40 MG TAB PO SCH (09:35)
[2020-04-21] MEDS: ZINC SULFATE 220mg CAP or TAB PO SCH (09:35)
[2020-04-21] MEDS: METOPROLOL TARTRATE 25 MG TAB PO SCH ×2 (09:36→22:21)
[2020-04-21] MEDS: SODIUM CHLOR 0.9% PF (SALINE LOCK) 10ML VIAL/SYR IV SCH ×2 (09:36→21:58)
[2020-04-21 16:00] VITALS: BP 109/65
[2020-04-21] MEDS: APIXABAN 5 MG TAB PO SCH (21:58)
[2020-04-22] VITALS: BP 122/70
[2020-04-22] MEDS: MORPHINE SULF INJ 2 MG/ML SYRINGE 1ML IV PRN (04:36)
[2020-04-22 06:22] LABS: Basophils # (auto) 0.1 10 ^3/uL (0-0.2); Basophils % (auto) 0.4 % (0.0-2.0); Eosinophils # (auto) 1.1 10 ^3/uL (0-0.8); Eosinophils % (auto) 7.4 % (0.0-7.0); Hematocrit 30.8 % (41.0-53.0); Hemoglobin 10.1 g/dL (13.5-17.5); Lymphocytes # (auto) 1.1 10 ^3/uL (0.4-5.4); Lymphocytes % (auto) 6.8 % (10.0-50.0); Mean Corpuscular Hemoglobin 27.4 pg (28.0-32.0); Mean Corpuscular Hgb Conc. 32.8 g/dL (32.0-36.0); Mean Corpuscular Volume 83.4 fL (80.0-100.0); Monocytes # (auto) 0.7 10 ^3/uL (0-1.3); Monocytes % (auto) 4.4 % (0.0-12.0); Neutrophils # (auto) 12.7 10 ^3/uL (1.6-8.6); Nucleated Red Blood Cells % 0.1 %; Platelet Count (auto) 261 10^3/uL (140-450); White Blood Cell 15.6 10^3/uL (4.4-10.8)
[2020-04-22] MEDS: oxyCODONE ER 10 MG TAB PO SCH ×3 (06:30→23:13)
[2020-04-22 07:49] VITALS: BP 122/86
[2020-04-22 09:00] VITALS: BP 100/65
[2020-04-22] MEDS: DexAMETHasone 4 MG TAB PO SCH (09:35)
[2020-04-22] MEDS: LACTULOSE 20Gm/30ML SOLN PO SCH ×2 (09:35→23:12)
[2020-04-22] MEDS: APIXABAN 5 MG TAB PO SCH ×2 (09:36→23:13)
[2020-04-22] MEDS: PANTOPRAZOLE 40 MG TAB PO SCH (09:36)
[2020-04-22] MEDS: ZINC SULFATE 220mg CAP or TAB PO SCH (09:36)
[2020-04-22] MEDS: SODIUM CHLOR 0.9% PF (SALINE LOCK) 10ML VIAL/SYR IV SCH ×2 (09:36→23:12)
[2020-04-22] MEDS: METOPROLOL TARTRATE 25 MG TAB PO SCH ×2 (09:37→22:00)
[2020-04-22] MEDS ORDERED: AMIODARONE HCL 200 MG TAB PO SCH ×2 (10:00→22:00)
[2020-04-22] MEDS: BUDESONIDE (INHALATION) 180 MCG IH IN SCH (10:20)
[2020-04-22] MEDS: ALBUTEROL SULF HFA 90MCG INH 200DOSE IN PRN (10:20)
[2020-04-22] MEDS ORDERED: FUROSEMIDE 40 MG/4 ML VIAL IV ONE (10:45)
[2020-04-22] MEDS: LORazepam 0.5 MG TAB PO PRN (13:33)
[2020-04-22] MEDS: ENALAPRIL MALEATE 2.5 MG TAB PO SCH (22:00)
[2020-04-23] VITALS: BP 99/73
[2020-04-23] MEDS: oxyCODONE ER 10 MG TAB PO SCH ×3 (05:57→22:54)
[2020-04-23] MEDS: BUDESONIDE (INHALATION) 180 MCG IH IN SCH ×2 (06:18→22:52)
[2020-04-23] MEDS: ALBUTEROL SULF HFA 90MCG INH 200DOSE IN PRN (06:19)
[2020-04-23] MEDS: SODIUM CHLOR 0.9% PF (SALINE LOCK) 10ML VIAL/SYR IV SCH ×2 (10:06→22:52)
[2020-04-23] MEDS: APIXABAN 5 MG TAB PO SCH ×2 (10:06→22:52)
[2020-04-23] MEDS: ENALAPRIL MALEATE 2.5 MG TAB PO SCH ×2 (10:07→22:54)
[2020-04-23] MEDS: PANTOPRAZOLE 40 MG TAB PO SCH (10:07)
[2020-04-23] MEDS: ZINC SULFATE 220mg CAP or TAB PO SCH (10:07)
[2020-04-23] MEDS: DexAMETHasone 4 MG TAB PO SCH (10:07)
[2020-04-23] MEDS: MORPHINE SULF INJ 2 MG/ML SYRINGE 1ML IV PRN ×2 (10:07→20:13)
[2020-04-23] MEDS: METOPROLOL TARTRATE 25 MG TAB PO SCH ×2 (10:08→22:53)
[2020-04-23 12:47] LABS: Basophils # (auto) 0 10 ^3/uL (0-0.2); Basophils % (auto) 0.2 % (0.0-2.0); Eosinophils # (auto) 0.2 10 ^3/uL (0-0.8); Eosinophils % (auto) 1.2 % (0.0-7.0); Hematocrit 27.2 % (41.0-53.0); Hemoglobin 8.9 g/dL (13.5-17.5); Lymphocytes # (auto) 0.9 10 ^3/uL (0.4-5.4); Lymphocytes % (auto) 6.6 % (10.0-50.0); Mean Corpuscular Hemoglobin 27.6 pg (28.0-32.0); Mean Corpuscular Hgb Conc. 32.5 g/dL (32.0-36.0); Mean Corpuscular Volume 84.7 fL (80.0-100.0); Monocytes # (auto) 0.7 10 ^3/uL (0-1.3); Monocytes % (auto) 5.3 % (0.0-12.0); Neutrophils # (auto) 11.3 10 ^3/uL (1.6-8.6); Neutrophils % (auto) 86.7 % (37.0-80.0); Platelet Count (auto) 234 10^3/uL (140-450); Red Blood Cells 3.22 10^6/uL (4.5-5.90); Red Cell Distribution Width 15.2 % (11.8-14.3)
[2020-04-23 13:16] LABS: Calcium 8.8 mg/dL (8.5-10.1); Potassium 4.5 mmol/L (3.5-5.1)
[2020-04-23 23:46] VITALS: BP 136/72
[2020-04-24] MEDS: MORPHINE SULF INJ 2 MG/ML SYRINGE 1ML IV PRN ×2 (03:41→20:29)
[2020-04-24] MEDS: oxyCODONE ER 10 MG TAB PO SCH ×3 (06:18→21:12)
[2020-04-24 08:00] VITALS: BP 108/60
[2020-04-24] MEDS: SODIUM CHLOR 0.9% PF (SALINE LOCK) 10ML VIAL/SYR IV SCH ×2 (10:00→21:12)
[2020-04-24] MEDS: BUDESONIDE (INHALATION) 180 MCG IH IN SCH ×3 (10:00→19:20)
[2020-04-24] MEDS: DexAMETHasone 4 MG TAB PO SCH (11:03)
[2020-04-24] MEDS: ZINC SULFATE 220mg CAP or TAB PO SCH (11:03)
[2020-04-24] MEDS: METOPROLOL TARTRATE 25 MG TAB PO SCH ×2 (11:04→21:13)
[2020-04-24] MEDS: ENALAPRIL MALEATE 2.5 MG TAB PO SCH ×2 (11:04→21:13)
[2020-04-24] MEDS: PANTOPRAZOLE 40 MG TAB PO SCH ×2 (11:04→21:12)
[2020-04-24] MEDS: LORazepam 0.5 MG TAB PO PRN (12:11)
[2020-04-24] MEDS ORDERED: FUROSEMIDE 40 MG/4 ML VIAL IV ONE (12:45)
[2020-04-24] MEDS: ALBUTEROL SULF HFA 90MCG INH 200DOSE IN PRN ×2 (12:55→19:20)
[2020-04-24 16:00] VITALS: BP 128/72
[2020-04-25] VITALS: BP 119/67
[2020-04-25 02:20] VITALS: BP 119/67
[2020-04-25] MEDS: MORPHINE SULF INJ 2 MG/ML SYRINGE 1ML IV PRN ×2 (04:38→18:11)
[2020-04-25] MEDS: BUDESONIDE (INHALATION) 180 MCG IH IN SCH (06:20)
[2020-04-25] MEDS: oxyCODONE ER 10 MG TAB PO SCH ×3 (06:41→21:56)
[2020-04-25 08:00] VITALS: BP 104/63
[2020-04-25] MEDS: ALBUTEROL SULF HFA 90MCG INH 200DOSE IN PRN ×2 (08:24→18:51)
[2020-04-25] MEDS: ZINC SULFATE 220mg CAP or TAB PO SCH (10:11)
[2020-04-25] MEDS: DexAMETHasone 4 MG TAB PO SCH (10:11)
[2020-04-25] MEDS: SODIUM CHLOR 0.9% PF (SALINE LOCK) 10ML VIAL/SYR IV SCH ×2 (10:12→21:55)
[2020-04-25] MEDS: ENALAPRIL MALEATE 2.5 MG TAB PO SCH ×2 (10:12→22:18)
[2020-04-25] MEDS: METOPROLOL TARTRATE 25 MG TAB PO SCH ×2 (10:12→22:18)
[2020-04-25] MEDS: PANTOPRAZOLE 40 MG TAB PO SCH ×2 (10:12→21:56)
[2020-04-25 10:27] LABS: Basophils # (auto) 0 10 ^3/uL (0-0.2); Basophils % (auto) 0.2 % (0.0-2.0); Eosinophils # (auto) 0 10 ^3/uL (0-0.8); Eosinophils % (auto) 0.2 % (0.0-7.0); Hematocrit 29.4 % (41.0-53.0); Hemoglobin 9.5 g/dL (13.5-17.5); Lymphocytes # (auto) 0.9 10 ^3/uL (0.4-5.4); Lymphocytes % (auto) 7.6 % (10.0-50.0); Mean Corpuscular Hemoglobin 27.3 pg (28.0-32.0); Mean Corpuscular Hgb Conc. 32.3 g/dL (32.0-36.0); Mean Corpuscular Volume 84.5 fL (80.0-100.0); Monocytes # (auto) 0.7 10 ^3/uL (0-1.3); Monocytes % (auto) 5.3 % (0.0-12.0); Neutrophils # (auto) 10.6 10 ^3/uL (1.6-8.6); Neutrophils % (auto) 86.7 % (37.0-80.0); Platelet Count (auto) 259 10^3/uL (140-450); Red Blood Cells 3.48 10^6/uL (4.5-5.90); Red Cell Distribution Width 15.2 % (11.8-14.3); White Blood Cell 12.2 10^3/uL (4.4-10.8)
[2020-04-25 16:00] VITALS: BP 109/51
[2020-04-26] VITALS: BP 126/70
[2020-04-26] MEDS: MORPHINE SULF INJ 2 MG/ML SYRINGE 1ML IV PRN ×4 (01:19→20:04)
[2020-04-26] MEDS: BUDESONIDE (INHALATION) 180 MCG IH IN SCH ×2 (06:12→18:57)
[2020-04-26] MEDS: oxyCODONE ER 10 MG TAB PO SCH ×3 (06:50→22:22)
[2020-04-26 07:20] VITALS: BP 94/55
[2020-04-26] MEDS: PANTOPRAZOLE 40 MG TAB PO SCH ×2 (09:25→22:22)
[2020-04-26] MEDS: ZINC SULFATE 220mg CAP or TAB PO SCH (09:25)
[2020-04-26] MEDS: SODIUM CHLOR 0.9% PF (SALINE LOCK) 10ML VIAL/SYR IV SCH ×2 (09:25→22:21)
[2020-04-26] MEDS: DexAMETHasone 4 MG TAB PO SCH (09:25)
[2020-04-26] MEDS: METOPROLOL TARTRATE 25 MG TAB PO SCH ×2 (09:26→22:23)
[2020-04-26] MEDS: ENALAPRIL MALEATE 2.5 MG TAB PO SCH ×2 (09:26→22:23)
[2020-04-26] MEDS ORDERED: ENOXAPARIN SOD 40 MG/0.4 ML SYRINGE SC ONE (10:30)
[2020-04-26] MEDS: ERGOCALCIFEROL 50,000 UNIT(1.25MG) CAP PO SCH (11:38)
[2020-04-26 16:04] VITALS: BP 104/63
[2020-04-26] MEDS: ALBUTEROL SULF HFA 90MCG INH 200DOSE IN PRN (18:57)
[2020-04-27 00:11] VITALS: BP 114/66
[2020-04-27] MEDS: MORPHINE SULF INJ 2 MG/ML SYRINGE 1ML IV PRN ×3 (04:53→18:27)
[2020-04-27] MEDS: ALBUTEROL SULF HFA 90MCG INH 200DOSE IN PRN ×2 (06:02→18:43)
[2020-04-27] MEDS: BUDESONIDE (INHALATION) 180 MCG IH IN SCH ×2 (06:02→18:43)
[2020-04-27] MEDS: oxyCODONE ER 10 MG TAB PO SCH ×3 (06:06→21:42)
[2020-04-27 06:25] LABS: Hematocrit 27.7 % (41.0-53.0); Mean Corpuscular Hemoglobin 27.1 pg (28.0-32.0); Mean Corpuscular Hgb Conc. 32.5 g/dL (32.0-36.0); Mean Corpuscular Volume 83.2 fL (80.0-100.0); Platelet Count (auto) 226 10^3/uL (140-450); Red Blood Cells 3.33 10^6/uL (4.5-5.90); Red Cell Distribution Width 15.1 % (11.8-14.3); White Blood Cell 11.5 10^3/uL (4.4-10.8)
[2020-04-27 06:58] LABS: Band Neutrophils % (manual) 0; Basophils % (manual) 0 (0.0-2.0); Blast Cells 0; Promyelocytes % 0; Reactive Lymphocytes 0
[2020-04-27 08:00] VITALS: BP 120/65
[2020-04-27 08:56] LABS: Eosinophils % (manual) 1 (0-7); Lymphocytes % (manual) 9 (10.0-50.0); Metamyelocytes % 1; Monocytes % (manual) 6 (0-12); Myelocytes % 1
[2020-04-27] MEDS ORDERED: diphenhdrAMINE HCL 50 MG/1 ML VL IV PRN (09:15)
[2020-04-27] MEDS: PANTOPRAZOLE 40 MG TAB PO SCH ×2 (09:31→21:43)
[2020-04-27] MEDS: ZINC SULFATE 220mg CAP or TAB PO SCH (09:31)
[2020-04-27] MEDS: SODIUM CHLOR 0.9% PF (SALINE LOCK) 10ML VIAL/SYR IV SCH ×2 (09:31→21:42)
[2020-04-27] MEDS: DexAMETHasone 4 MG TAB PO SCH (09:31)
[2020-04-27] MEDS: METOPROLOL TARTRATE 25 MG TAB PO SCH ×2 (09:31→21:59)
[2020-04-27] MEDS: ENOXAPARIN SOD 40 MG/0.4 ML SYRINGE SC SCH (09:31)
[2020-04-27] MEDS: ENALAPRIL MALEATE 2.5 MG TAB PO SCH ×2 (09:35→21:59)
[2020-04-27] MEDS ORDERED: FUROSEMIDE 40 MG/4 ML VIAL IV ONE (11:00)
[2020-04-27 13:20] VITALS: BP 117/89
[2020-04-27 13:35] VITALS: BP 110/58
[2020-04-27 15:30] VITALS: BP 110/63
[2020-04-27 16:00] VITALS: BP 110/63
[2020-04-28 00:10] VITALS: BP 121/72
[2020-04-28] MEDS: MORPHINE SULF INJ 2 MG/ML SYRINGE 1ML IV PRN ×5 (02:18→23:39)
[2020-04-28] MEDS: BUDESONIDE (INHALATION) 180 MCG IH IN SCH ×2 (05:42→18:42)
[2020-04-28] MEDS: ALBUTEROL SULF HFA 90MCG INH 200DOSE IN PRN ×2 (05:42→18:42)
[2020-04-28 05:59] LABS: Hematocrit 28.3 % (41.0-53.0); Hemoglobin 9.1 g/dL (13.5-17.5)
[2020-04-28] MEDS: oxyCODONE ER 10 MG TAB PO SCH ×3 (06:15→21:40)
[2020-04-28 06:24] LABS: BUN/Creatinine Ratio 34.6; Calcium 9.1 mg/dL (8.5-10.1); Potassium 4.1 mmol/L (3.5-5.1)
[2020-04-28 08:00] VITALS: BP 111/65
[2020-04-28] MEDS: DexAMETHasone 4 MG TAB PO SCH (09:03)
[2020-04-28] MEDS: ENALAPRIL MALEATE 2.5 MG TAB PO SCH (09:08)
[2020-04-28] MEDS: PANTOPRAZOLE 40 MG TAB PO SCH ×2 (09:08→21:40)
[2020-04-28] MEDS: METOPROLOL TARTRATE 25 MG TAB PO SCH ×2 (09:09→21:39)
[2020-04-28] MEDS: ZINC SULFATE 220mg CAP or TAB PO SCH (09:09)
[2020-04-28] MEDS: SODIUM CHLOR 0.9% PF (SALINE LOCK) 10ML VIAL/SYR IV SCH ×2 (09:10→21:39)
[2020-04-28] MEDS: ENOXAPARIN SOD 40 MG/0.4 ML SYRINGE SC SCH (09:16)
[2020-04-28] MEDS: LORazepam 0.5 MG TAB PO PRN (12:04)
[2020-04-28 16:29] VITALS: BP 116/64
[2020-04-29] VITALS: BP 119/55
[2020-04-29] MEDS: MORPHINE SULF INJ 2 MG/ML SYRINGE 1ML IV PRN ×3 (03:39→17:52)
[2020-04-29] MEDS: oxyCODONE ER 10 MG TAB PO SCH ×2 (05:58→15:09)
[2020-04-29] MEDS: BUDESONIDE (INHALATION) 180 MCG IH IN SCH ×2 (06:54→18:48)
[2020-04-29] MEDS: ALBUTEROL SULF HFA 90MCG INH 200DOSE IN PRN ×2 (06:54→18:48)
[2020-04-29 08:00] VITALS: BP 107/59
[2020-04-29] MEDS ORDERED: ENALAPRIL MALEATE 2.5 MG TAB PO SCH (10:00)
[2020-04-29] MEDS ORDERED: ASPI-231 PO (10:13)
[2020-04-29] MEDS ORDERED: ALBUAER3 IN (10:13)
[2020-04-29] MEDS ORDERED: MET25T PO (10:13)
[2020-04-29] MEDS ORDERED: PANT40TA2 PO (10:13)
[2020-04-29] MEDS ORDERED: METH4PAK PO (10:13)
[2020-04-29] MEDS: DexAMETHasone 4 MG TAB PO SCH (10:15)
[2020-04-29] MEDS: PANTOPRAZOLE 40 MG TAB PO SCH (10:15)
[2020-04-29] MEDS: SODIUM CHLOR 0.9% PF (SALINE LOCK) 10ML VIAL/SYR IV SCH (10:15)
[2020-04-29] MEDS: ZINC SULFATE 220mg CAP or TAB PO SCH (10:15)
[2020-04-29] MEDS: ENOXAPARIN SOD 40 MG/0.4 ML SYRINGE SC SCH (10:25)
[2020-04-29] MEDS: METOPROLOL TARTRATE 25 MG TAB PO SCH (10:26)
[2020-04-29 16:00] VITALS: BP 114/69
== END 2020-04-29 19:14 | disposition hospice, home (50) | DRG 177 ==
LOC: ER 18:26 → EDBD 18:26 → TELE 18:27 → TELE-EAST 03-19 02:02 → TELE-E-ADS 03-19 02:45 → TELE-EAST 03-20 09:48
PROVIDERS: ADMIT Nurse Practitioner Family; ATTEND Internal Medicine
PROC: 5A09357 Assistance with Respiratory Ventilation, Less than 24 Consecutive Hours, Continuous Positive Airway Pressure (ICD-10-PCS; 2020-03-17)
PROC: XW033E5 Introduction of Remdesivir Anti-infective into Peripheral Vein, Percutaneous Approach, New Technology Group 5 (ICD-10-PCS; 2020-03-20)
PROC: XW13325 Transfusion of Convalescent Plasma (Nonautologous) into Peripheral Vein, Percutaneous Approach, New Technology Group 5 (ICD-10-PCS; principal; 2020-03-21)
PROC: 05H933Z Insertion of Infusion Device into Right Brachial Vein, Percutaneous Approach (ICD-10-PCS; 2020-03-21)
PROC: B54MZZA Ultrasonography of Right Upper Extremity Veins, Guidance (ICD-10-PCS; 2020-03-21)
PROC: 5A09457 Assistance with Respiratory Ventilation, 24-96 Consecutive Hours, Continuous Positive Airway Pressure (ICD-10-PCS; 2020-03-25)
PROC: 5A09557 Assistance with Respiratory Ventilation, Greater than 96 Consecutive Hours, Continuous Positive Airway Pressure (ICD-10-PCS; 2020-03-28)
PROC: XW033H5 Introduction of Tocilizumab into Peripheral Vein, Percutaneous Approach, New Technology Group 5 (ICD-10-PCS; 2020-03-30)
PROC: 02HV33Z Insertion of Infusion Device into Superior Vena Cava, Percutaneous Approach (ICD-10-PCS; 2020-03-31)
PROC: 5A09357 Assistance with Respiratory Ventilation, Less than 24 Consecutive Hours, Continuous Positive Airway Pressure (ICD-10-PCS; 2020-04-07)
PROC: 5A09357 Assistance with Respiratory Ventilation, Less than 24 Consecutive Hours, Continuous Positive Airway Pressure (ICD-10-PCS; 2020-04-24)
PROC: 5A09357 Assistance with Respiratory Ventilation, Less than 24 Consecutive Hours, Continuous Positive Airway Pressure (ICD-10-PCS; 2020-04-25)
PROC: 5A09357 Assistance with Respiratory Ventilation, Less than 24 Consecutive Hours, Continuous Positive Airway Pressure (ICD-10-PCS; 2020-04-26)
PROC: 5A09357 Assistance with Respiratory Ventilation, Less than 24 Consecutive Hours, Continuous Positive Airway Pressure (ICD-10-PCS; 2020-04-27)
PROC: 5A09357 Assistance with Respiratory Ventilation, Less than 24 Consecutive Hours, Continuous Positive Airway Pressure (ICD-10-PCS; 2020-04-28)
DX: U07.1 COVID-19 (principal); J12.82 Pneumonia due to coronavirus disease 2019; J96.01 Acute respiratory failure with hypoxia; I26.94 Multiple subsegmental thrombotic pulmonary emboli without acute cor pulmonale; E43 Unspecified severe protein-calorie malnutrition; N17.0 Acute kidney failure with tubular necrosis; A41.9 Sepsis, unspecified organism; E87.1 Hypo-osmolality and hyponatremia; I47.2 Ventricular tachycardia; K62.5 Hemorrhage of anus and rectum; D68.32 Hemorrhagic disorder due to extrinsic circulating anticoagulants; I42.9 Cardiomyopathy, unspecified; F11.20 Opioid dependence, uncomplicated; K86.2 Cyst of pancreas; E87.5 Hyperkalemia; J43.9 Emphysema, unspecified; N14.1 Nephropathy induced by other drugs, medicaments and biological substances; E86.0 Dehydration; E55.9 Vitamin D deficiency, unspecified; G89.29 Other chronic pain; Z68.24 Body mass index [BMI] 24.0-24.9, adult; E11.22 Type 2 diabetes mellitus with diabetic chronic kidney disease; F17.210 Nicotine dependence, cigarettes, uncomplicated; I48.91 Unspecified atrial fibrillation; T45.515A Adverse effect of anticoagulants, initial encounter; Z51.5 Encounter for palliative care; Z96.653 Presence of artificial knee joint, bilateral; T50.8X5A Adverse effect of diagnostic agents, initial encounter; Z53.20 Procedure and treatment not carried out because of patient's decision for unspecified reasons; Z79.01 Long term (current) use of anticoagulants; Z86.718 Personal history of other venous thrombosis and embolism; Z86.711 Personal history of pulmonary embolism; Y92.89 Other specified places as the place of occurrence of the external cause; Z28.21 Immunization not carried out because of patient refusal; N18.31 Chronic kidney disease, stage 3a
CPT/HCPCS: 36415; 36569; 36600; 71045; 71275; 74176; 76775; 80048; 80053; 80076; 81001; 82040; 82270; 82306; 82533; 82728; 82805; 82962; 83036; 83605; 83615; 83735; 83880; 83930; 83935; 84100; 84132; 84300; 84439; 84443; 84478; 84484; 84550; 85007; 85014; 85018; 85025; 85027; 85379; 85610; 85730; 86141; 86850; 86900; 86901; 87040; 87081; 87086; 87426; 93005; 93306; 93970; 94640; 94644; 94660; 96365; 96375; 97110; 97163; 97530; C9113; G0378; J0610; J1100; J1815; J2543; J3490; J7131

== ENCOUNTER 2020-04-30 19:22 | Inpatient (IN) | payer MEDICARE, OTHER ==
[~2020-04-30] VITALS: Ht 175.3 cm; Wt 61.2 kg
[~2020-04-30 19:22] MED LIST changes: +ALBUAER3 IN; +ASPI-231 PO; -AZIT250T9; -CARI350T22; +MET25T PO; +METH4PAK PO; -MORP1TAB15; +OXY20CRT PO; -OXYCODONE 30 MG; +PANT40TA2 PO; -PROAIR HFA AER
[2020-04-30] MEDS ORDERED: levoFLOXacin 750MG 150 ML IV ONE (21:15)
[2020-04-30 21:17] LABS: Basophils # (auto) 0 10 ^3/uL (0-0.2); Basophils % (auto) 0.2 % (0.0-2.0); Eosinophils # (auto) 1.2 10 ^3/uL (0-0.8); Eosinophils % (auto) 7.9 % (0.0-7.0); Hematocrit 35.3 % (41.0-53.0); Hemoglobin 11.7 g/dL (13.5-17.5); Lymphocytes # (auto) 2.4 10 ^3/uL (0.4-5.4); Mean Corpuscular Hgb Conc. 33.3 g/dL (32.0-36.0); Mean Corpuscular Volume 84.1 fL (80.0-100.0); Monocytes # (auto) 0.5 10 ^3/uL (0-1.3); Monocytes % (auto) 3.1 % (0.0-12.0); Neutrophils # (auto) 11.7 10 ^3/uL (1.6-8.6); Neutrophils % (auto) 73.8 % (37.0-80.0); Nucleated Red Blood Cells % 0.1 %; Red Cell Distribution Width 15.5 % (11.8-14.3); White Blood Cell 15.8 10^3/uL (4.4-10.8)
[2020-04-30 21:27] LABS: Albumin 2.7 g/dL (3.4-5.0); Anion Gap 4 (5-15); Blood Urea Nitrogen 18 mg/dL (7-18); Calcium 8.6 mg/dL (8.5-10.1); Carbon Dioxide 34 mmol/L (21-32); Chloride 94 mmol/L (98-107); Glucose 150 mg/dL (74-106); Magnesium 2.3 mg/dL (1.6-2.6); Potassium 4.5 mmol/L (3.5-5.1); Sodium 132 mmol/L (136-145)
[2020-04-30 21:30] LABS: Alanine Aminotransferase 77 U/L (16-61); Alkaline Phosphatase 83 U/L (45-117); Aspartate Aminotransferase 40 U/L (15-37); BUN/Creatinine Ratio 23.7; Bilirubin, Total 0.4 mg/dL (0.2-1.0); GFR African American 131 mL/min; GFR Non-African American 108 mL/min; Total Protein 6.8 g/dL (6.4-8.2)
[2020-05-01 00:14] LABS: Partial Thromboplastin Time 27.6 sec (23.0-31.2)
[2020-05-01] MEDS ORDERED: ONDANSETRON HCL 4 MG/2 ML VIAL IV PRN (00:30)
[2020-05-01] MEDS ORDERED: DOCUSATE SOD 100 MG CAP PO PRN (00:30)
[2020-05-01] MEDS ORDERED: NITROGLYCERIN 0.4 MG SL TAB SL PRN (00:30)
[2020-05-01] MEDS ORDERED: HYDROcodone-ACET 5/325MG TAB PO PRN (00:30)
[2020-05-01] MEDS ORDERED: ALBUMIN 5% 250 ML IV ONE (00:30)
[2020-05-01] MEDS ORDERED: ACETAMINOPHEN 500 MG TAB PO PRN (00:30)
[2020-05-01] MEDS ORDERED: ALBUTEROL SULF HFA 90MCG INH 200DOSE IN PRN (00:30)
[2020-05-01] MEDS: SODIUM CHLORIDE 0.9% 1,000 ML IV SCH ×2 (01:15→17:44)
[2020-05-01] MEDS: MORPHINE SULFATE INJECTION 2 MG/ML SYRG IV PRN ×2 (03:23→17:07)
[2020-05-01 03:48] LABS: Urine Bacteria FEW /hpf (None Seen); Urine Blood Negative /uL (Negative); Urine Hyaline Cast FEW /lpf (0 - 2); Urine Specific Gravity 1.026 (1.001-1.035); Urine WBC 1 /hpf (0 - 3)
[2020-05-01] MEDS: SODIUM CHLOR 0.9% PF (SALINE LOCK) 10ML VIAL/SYR IV SCH ×2 (05:55→14:44)
[2020-05-01] MEDS: hydrALAZINE HCL 20 MG/ML VL IV SCH ×2 (06:00→12:00)
[2020-05-01] MEDS: PIPERACILLIN-TAZOB 3.375GM 100 ML IV SCH ×2 (06:05→17:07)
[2020-05-01] MEDS ORDERED: DOXYCYCLINE 100MG/250ML 250 ML IV SCH (10:00)
[2020-05-01] MEDS ORDERED: ZINC SULFATE 220mg CAP or TAB PO SCH (10:00)
[2020-05-01] MEDS ORDERED: ENOXAPARIN SOD 30 MG/0.3 ML SYRINGE SC SCH (10:00)
[2020-05-01] MEDS ORDERED: BUDESONIDE (INHALATION) 180 MCG IH IN SCH (10:00)
[2020-05-01] MEDS ORDERED: METOPROLOL TARTRATE 25 MG TAB PO SCH (10:00)
[2020-05-01] MEDS ORDERED: MULTIPLE VITAMIN TAB PO SCH (10:00)
[2020-05-01] MEDS ORDERED: ASCORBIC ACID 1,000 MG TAB PO SCH (10:00)
[2020-05-01] MEDS ORDERED: DexAMETHasone SOD PHOS 10MG/1ML VIAL INJ IV SCH (10:00)
[2020-05-01] MEDS ORDERED: CHOLECALCIFEROL (VITD3) 2,000 UNIT CAP/TAB PO SCH (10:00)
[2020-05-01] MEDS ORDERED: FAMOTIDINE (10MG/ML) 2ML VL IV SCH (10:00)
[2020-05-01] MEDS ORDERED: oxyCODONE HCL 5MG TAB PO PRN (11:45)
[2020-05-01 16:45] VITALS: BP 121/75
== END 2020-05-01 17:00 | disposition hospice, home (50) | DRG 177 ==
LOC: EDBD 19:22 → ER 19:22 → TELE 05-01 01:43
PROVIDERS: ADMIT Nurse Practitioner Family; ATTEND Nurse Practitioner Family
PROC: 5A09357 Assistance with Respiratory Ventilation, Less than 24 Consecutive Hours, Continuous Positive Airway Pressure (ICD-10-PCS; principal; 2020-05-01)
DX: U07.1 COVID-19 (principal); J12.82 Pneumonia due to coronavirus disease 2019; J96.01 Acute respiratory failure with hypoxia; E87.1 Hypo-osmolality and hyponatremia; F11.20 Opioid dependence, uncomplicated; I42.9 Cardiomyopathy, unspecified; I47.2 Ventricular tachycardia; Z51.5 Encounter for palliative care; D64.9 Anemia, unspecified; F17.210 Nicotine dependence, cigarettes, uncomplicated; G89.4 Chronic pain syndrome; Z79.01 Long term (current) use of anticoagulants; Z86.711 Personal history of pulmonary embolism; Z86.718 Personal history of other venous thrombosis and embolism; M19.90 Unspecified osteoarthritis, unspecified site; R79.89 Other specified abnormal findings of blood chemistry; D72.825 Bandemia
CPT/HCPCS: 36415; 36600; 71045; 80053; 81001; 82728; 82805; 83605; 83735; 83880; 84484; 85025; 85379; 85610; 85730; 87040; 93005; 94660; 96365; 96366; 96367; 96372; 96375; 96376; G0378; J1100; J1956; J2543; J3490

== ENCOUNTER 2020-05-19 09:05 | Inpatient (IN) | payer OTHER ==
[~2020-05-19] VITALS: Ht 185.4 cm; Wt 82.0 kg
[2020-05-19 09:46] LABS: Eosinophils # (auto) 1.3 10 ^3/uL (0-0.8); Lymphocytes # (auto) 1.6 10 ^3/uL (0.4-5.4); Monocytes # (auto) 0.7 10 ^3/uL (0-1.3); Neutrophils # (auto) 5.8 10 ^3/uL (1.6-8.6); White Blood Cell 9.4 10^3/uL (4.4-10.8)
[2020-05-19 09:48] LABS: Basophils # (auto) 0 10 ^3/uL (0-0.2); Basophils % (auto) 0.4 % (0.0-2.0); Eosinophils % (auto) 13.7 % (0.0-7.0); Hematocrit 27.2 % (41.0-53.0); Hemoglobin 8.8 g/dL (13.5-17.5); Lymphocytes % (auto) 17.1 % (10.0-50.0); Mean Corpuscular Hemoglobin 27.5 pg (28.0-32.0); Mean Corpuscular Hgb Conc. 32.2 g/dL (32.0-36.0); Mean Corpuscular Volume 85.4 fL (80.0-100.0); Monocytes % (auto) 7.4 % (0.0-12.0); Neutrophils % (auto) 61.4 % (37.0-80.0); Red Blood Cells 3.19 10^6/uL (4.5-5.90)
[2020-05-19 10:05] LABS: Chloride 93 mmol/L (98-107); Potassium 3.9 mmol/L (3.5-5.1); Sodium 134 mmol/L (136-145)
[2020-05-19 10:07] LABS: INR 1.03 (0.9-1.15); Partial Thromboplastin Time 29.1 sec (23.0-31.2)
[2020-05-19 10:13] LABS: Alanine Aminotransferase 21 U/L (16-61); Albumin 2.4 g/dL (3.4-5.0); Alkaline Phosphatase 70 U/L (45-117); Anion Gap 3 (5-15); Aspartate Aminotransferase 24 U/L (15-37); BUN/Creatinine Ratio 7.4; Bilirubin, Total 0.2 mg/dL (0.2-1.0); Blood Urea Nitrogen 5 mg/dL (7-18); Calcium 9.8 mg/dL (8.5-10.1); Carbon Dioxide 38 mmol/L (21-32); GFR African American 149 mL/min; GFR Non-African American 123 mL/min; Glucose 153 mg/dL (74-106); Total Protein 7.1 g/dL (6.4-8.2)
[2020-05-19 11:15] LABS: Platelet Count (auto) 505 10^3/uL (140-450)
[2020-05-19] MEDS ORDERED: PANTOPRAZOLE 40 MG/10 ML VIAL INJ IV ONE (11:15)
[2020-05-19] MEDS ORDERED: MORPHINE SULF INJ 2 MG/ML SYRINGE 1ML IV PRN (11:15)
[2020-05-19] MEDS ORDERED: NITROGLYCERIN 0.4 MG SL TAB SL PRN (11:15)
[2020-05-19] MEDS ORDERED: DEXTROSE (50%) 50ML SYRG IV PRN (11:45)
[2020-05-19] MEDS: SODIUM CHLORIDE 0.9% 1,000 ML IV SCH ×2 (12:00→20:04)
[2020-05-19] MEDS ORDERED: ONDANSETRON HCL 4 MG/2 ML VIAL IV PRN (12:00)
[2020-05-19] MEDS: ALBUTEROL SULF 2.5 MG/0.5ML(0.5%) NEB SOLN NEB SCH ×2 (12:00→18:00)
[2020-05-19] MEDS ORDERED: ALBUTEROL SULF 2.5 MG/0.5ML(0.5%) NEB SOLN NEB PRN (12:00)
[2020-05-19] MEDS: IPRATROPIUM BROM 0.5 MG/2.5ML INH SOL NEB SCH ×2 (12:00→18:00)
[2020-05-19] MEDS: levoFLOXacin 500MG 100 ML IV SCH (13:43)
[2020-05-19] MEDS: HYDROCORTISONE ACET 25 MG RECTAL SUPP PR SCH (13:49)
[2020-05-19 13:57] LABS: Hemoglobin 7.6 g/dL (13.5-17.5)
[2020-05-19 14:00] LABS: Hematocrit 23.2 % (41.0-53.0)
[2020-05-19] MEDS: ACCU-CHEK COMFORT CURVE STRIP VI SCH ×2 (14:02→18:28)
[2020-05-19] MEDS: InsuLIN REG 1unit/0.01ml Soln (100units/ml) SC SCH ×2 (14:03→18:00)
[2020-05-19] MEDS: metroNIDAZOLE 500MG/100ML 100 ML IV SCH ×2 (15:09→22:00)
[2020-05-19 18:22] LABS: Hematocrit 23.4 % (41.0-53.0); Hemoglobin 7.5 g/dL (13.5-17.5)
[2020-05-19] MEDS: MORPHINE SULF INJ 2 MG/ML SYRINGE 1ML IV PRN (20:27)
[2020-05-19 20:52] VITALS: BP 113/74
[2020-05-19] MEDS: PANTOPRAZOLE 40 MG/10 ML VIAL INJ IV SCH (22:00)
[2020-05-20] VITALS (11 sets, daily range): BP systolic 109–123; BP diastolic 67–74
[2020-05-20] MEDS: MORPHINE SULF INJ 2 MG/ML SYRINGE 1ML IV PRN ×6 (01:03→23:06)
[2020-05-20 01:08] LABS: Hematocrit 22.3 % (41.0-53.0); Hemoglobin 7.2 g/dL (13.5-17.5)
[2020-05-20] MEDS: SODIUM CHLORIDE 0.9% 1,000 ML IV SCH ×3 (04:00→20:35)
[2020-05-20 05:22] LABS: Urine Bacteria FEW /hpf (None Seen); Urine Blood Negative /uL (Negative); Urine Mucus FEW (None Seen); Urine WBC 1 /hpf (0 - 3)
[2020-05-20] MEDS: InsuLIN REG 1unit/0.01ml Soln (100units/ml) SC SCH ×5 (05:37→23:06)
[2020-05-20] MEDS: ACCU-CHEK COMFORT CURVE STRIP VI SCH ×5 (05:37→23:06)
[2020-05-20] MEDS: ALBUTEROL SULF 2.5 MG/0.5ML(0.5%) NEB SOLN NEB SCH ×4 (06:35→20:23)
[2020-05-20] MEDS: IPRATROPIUM BROM 0.5 MG/2.5ML INH SOL NEB SCH ×4 (06:35→20:23)
[2020-05-20] MEDS: metroNIDAZOLE 500MG/100ML 100 ML IV SCH ×3 (06:38→21:20)
[2020-05-20] MEDS ORDERED: PROM2SYP2 PO (06:43)
[2020-05-20] MEDS ORDERED: INFLUENZA QUAD 2020-2021 0.5 ML SYRG IM ONE (06:45)
[2020-05-20] MEDS: HYDROCORTISONE ACET 25 MG RECTAL SUPP PR SCH ×2 (10:00→10:35)
[2020-05-20 10:03] LABS: Hemoglobin 9.2 g/dL (13.5-17.5)
[2020-05-20 10:05] LABS: Hematocrit 28.9 % (41.0-53.0)
[2020-05-20] MEDS: levoFLOXacin 500MG 100 ML IV SCH (10:35)
[2020-05-20] MEDS: PANTOPRAZOLE 40 MG/10 ML VIAL INJ IV SCH ×2 (10:35→21:20)
[2020-05-20] MEDS: guaiFENesin-DM 100/10mg/5ml SYR PO PRN ×2 (16:54→23:07)
[2020-05-20 19:22] LABS: Hematocrit 26.5 % (41.0-53.0); Hemoglobin 8.7 g/dL (13.5-17.5)
[2020-05-20] MEDS ORDERED: LORA0.5T20 PO (21:57)
[2020-05-20] MEDS ORDERED: MORP15TA PO (21:57)
[2020-05-21] MEDS: ALBUTEROL SULF 2.5 MG/0.5ML(0.5%) NEB SOLN NEB SCH ×4 (00:49→18:31)
[2020-05-21] MEDS: IPRATROPIUM BROM 0.5 MG/2.5ML INH SOL NEB SCH ×4 (00:49→18:31)
[2020-05-21] MEDS: MORPHINE SULF INJ 2 MG/ML SYRINGE 1ML IV PRN ×5 (02:47→21:51)
[2020-05-21] MEDS: SODIUM CHLORIDE 0.9% 1,000 ML IV SCH ×3 (04:00→20:00)
[2020-05-21 05:00] VITALS: BP 131/65
[2020-05-21] MEDS: metroNIDAZOLE 500MG/100ML 100 ML IV SCH ×3 (05:28→21:50)
[2020-05-21] MEDS: ACCU-CHEK COMFORT CURVE STRIP VI SCH ×4 (05:28→23:22)
[2020-05-21] MEDS: InsuLIN REG 1unit/0.01ml Soln (100units/ml) SC SCH ×4 (05:28→23:23)
[2020-05-21 07:16] LABS: Monocytes # (auto) 0.6 10 ^3/uL (0-1.3); White Blood Cell 7.9 10^3/uL (4.4-10.8)
[2020-05-21 07:18] LABS: Basophils # (auto) 0.1 10 ^3/uL (0-0.2); Basophils % (auto) 0.8 % (0.0-2.0); Eosinophils # (auto) 0.9 10 ^3/uL (0-0.8); Eosinophils % (auto) 10.8 % (0.0-7.0); Hematocrit 27.1 % (41.0-53.0); Hemoglobin 8.8 g/dL (13.5-17.5); Lymphocytes # (auto) 1.5 10 ^3/uL (0.4-5.4); Lymphocytes % (auto) 19.3 % (10.0-50.0); Mean Corpuscular Hgb Conc. 32.6 g/dL (32.0-36.0); Mean Corpuscular Volume 82.9 fL (80.0-100.0); Monocytes % (auto) 7.2 % (0.0-12.0); Neutrophils # (auto) 4.9 10 ^3/uL (1.6-8.6); Neutrophils % (auto) 61.9 % (37.0-80.0); Nucleated Red Blood Cells % 0.1 %; Platelet Count (auto) 507 10^3/uL (140-450); Red Blood Cells 3.27 10^6/uL (4.5-5.90); Red Cell Distribution Width 17.1 % (11.8-14.3)
[2020-05-21 07:46] LABS: Calcium 8.5 mg/dL (8.5-10.1); Potassium 3.9 mmol/L (3.5-5.1)
[2020-05-21 07:48] LABS: BUN/Creatinine Ratio 8.6
[2020-05-21 09:00] VITALS: BP 150/69
[2020-05-21] MEDS: levoFLOXacin 500MG 100 ML IV SCH (09:46)
[2020-05-21] MEDS: PANTOPRAZOLE 40 MG/10 ML VIAL INJ IV SCH ×2 (09:47→21:50)
[2020-05-21] MEDS: HYDROCORTISONE ACET 25 MG RECTAL SUPP PR SCH ×2 (09:47)
[2020-05-21] MEDS: PROMETHAZINE W/CODEINE 5 ML ORAL SYRUP PO PRN ×3 (11:53→21:51)
[2020-05-21 13:00] VITALS: BP 133/71
[2020-05-21 17:00] VITALS: BP 118/75
[2020-05-21 19:14] LABS: Hematocrit 27.2 % (41.0-53.0); Hemoglobin 8.9 g/dL (13.5-17.5)
[2020-05-21 22:00] VITALS: BP_SYST 125; BP_SYST 155; BP_DIAS 77; BP_DIAS 83
[2020-05-22] MEDS: SODIUM CHLORIDE 0.9% 1,000 ML IV SCH ×3 (00:27→20:15)
[2020-05-22] MEDS: IPRATROPIUM BROM 0.5 MG/2.5ML INH SOL NEB SCH ×2 (01:49→19:02)
[2020-05-22] MEDS: ALBUTEROL SULF 2.5 MG/0.5ML(0.5%) NEB SOLN NEB SCH ×2 (01:49→19:02)
[2020-05-22] MEDS: MORPHINE SULF INJ 2 MG/ML SYRINGE 1ML IV PRN ×5 (01:56→22:00)
[2020-05-22 05:00] VITALS: BP 123/76
[2020-05-22] MEDS: InsuLIN REG 1unit/0.01ml Soln (100units/ml) SC SCH ×3 (06:00→17:53)
[2020-05-22] MEDS: metroNIDAZOLE 500MG/100ML 100 ML IV SCH ×3 (06:03→22:00)
[2020-05-22] MEDS: ACCU-CHEK COMFORT CURVE STRIP VI SCH ×3 (06:04→17:52)
[2020-05-22 07:52] LABS: Basophils # (auto) 0.1 10 ^3/uL (0-0.2); Lymphocytes # (auto) 1.7 10 ^3/uL (0.4-5.4); Monocytes # (auto) 0.8 10 ^3/uL (0-1.3)
[2020-05-22 07:55] LABS: Basophils % (auto) 0.9 % (0.0-2.0); Eosinophils # (auto) 1.3 10 ^3/uL (0-0.8); Eosinophils % (auto) 13.2 % (0.0-7.0); Hematocrit 25.8 % (41.0-53.0); Hemoglobin 8.3 g/dL (13.5-17.5); Lymphocytes % (auto) 16.9 % (10.0-50.0); Mean Corpuscular Hemoglobin 27.3 pg (28.0-32.0); Mean Corpuscular Hgb Conc. 32.1 g/dL (32.0-36.0); Monocytes % (auto) 7.9 % (0.0-12.0); Neutrophils % (auto) 61.1 % (37.0-80.0); Platelet Count (auto) 493 10^3/uL (140-450); Red Blood Cells 3.04 10^6/uL (4.5-5.90); Red Cell Distribution Width 17.3 % (11.8-14.3); White Blood Cell 9.9 10^3/uL (4.4-10.8)
[2020-05-22 08:00] VITALS: BP 121/72
[2020-05-22 08:15] LABS: Albumin 2.2 g/dL (3.4-5.0); Calcium 9.3 mg/dL (8.5-10.1); Potassium 4.1 mmol/L (3.5-5.1)
[2020-05-22 08:18] LABS: BUN/Creatinine Ratio 11.5
[2020-05-22 08:24] LABS: Bilirubin, Total 0.2 mg/dL (0.2-1.0); Total Protein 6.2 g/dL (6.4-8.2)
[2020-05-22] MEDS: HYDROCORTISONE ACET 25 MG RECTAL SUPP PR SCH ×2 (10:00→10:07)
[2020-05-22] MEDS: levoFLOXacin 500MG 100 ML IV SCH (10:07)
[2020-05-22] MEDS: PANTOPRAZOLE 40 MG/10 ML VIAL INJ IV SCH ×2 (10:07→22:00)
[2020-05-22] MEDS: PROMETHAZINE W/CODEINE 5 ML ORAL SYRUP PO PRN ×3 (11:44→22:00)
[2020-05-22 13:00] VITALS: BP 129/79
[2020-05-22] MEDS: LORazepam 0.5 MG TAB PO PRN ×2 (14:50→21:00)
[2020-05-22 16:45] VITALS: BP 121/73
[2020-05-22] MEDS: Glucerna Carbsteady SHAKE Vanilla 8oz PO SCH (17:52)
[2020-05-23] MEDS: IPRATROPIUM BROM 0.5 MG/2.5ML INH SOL NEB SCH ×3 (00:19→11:20)
[2020-05-23] MEDS: ALBUTEROL SULF 2.5 MG/0.5ML(0.5%) NEB SOLN NEB SCH ×3 (00:19→11:20)
[2020-05-23] MEDS: MORPHINE SULF INJ 2 MG/ML SYRINGE 1ML IV PRN ×4 (02:08→15:10)
[2020-05-23] MEDS: PROMETHAZINE W/CODEINE 5 ML ORAL SYRUP PO PRN ×2 (02:09→06:00)
[2020-05-23 03:22] VITALS: BP 121/73
[2020-05-23] MEDS: LORazepam 0.5 MG TAB PO PRN (04:00)
[2020-05-23] MEDS: SODIUM CHLORIDE 0.9% 1,000 ML IV SCH ×2 (04:30→11:45)
[2020-05-23] MEDS: InsuLIN REG 1unit/0.01ml Soln (100units/ml) SC SCH ×3 (06:00→11:51)
[2020-05-23] MEDS: metroNIDAZOLE 500MG/100ML 100 ML IV SCH ×2 (06:00→13:26)
[2020-05-23] MEDS: ACCU-CHEK COMFORT CURVE STRIP VI SCH ×3 (06:00→11:51)
[2020-05-23 07:08] LABS: Hematocrit 25.7 % (41.0-53.0); Red Blood Cells 3.01 10^6/uL (4.5-5.90); Red Cell Distribution Width 17.8 % (11.8-14.3)
[2020-05-23 07:11] LABS: Hemoglobin 8.1 g/dL (13.5-17.5); Mean Corpuscular Hgb Conc. 31.7 g/dL (32.0-36.0); Mean Corpuscular Volume 85.3 fL (80.0-100.0); Platelet Count (auto) 484 10^3/uL (140-450); White Blood Cell 10.9 10^3/uL (4.4-10.8)
[2020-05-23 07:16] LABS: BUN/Creatinine Ratio 8.7; Calcium 9.5 mg/dL (8.5-10.1)
[2020-05-23 07:25] LABS: Basophils % (manual) 0 (0.0-2.0); Blast Cells 0; Myelocytes % 0; Promyelocytes % 0; Reactive Lymphocytes 0
[2020-05-23 08:00] VITALS: BP 135/70
[2020-05-23] MEDS: Glucerna Carbsteady SHAKE Vanilla 8oz PO SCH ×2 (08:00→11:45)
[2020-05-23] MEDS ORDERED: GADOTERATE MEG 7.5 MMOL/15ml INJ (0.5MMOL/ml) IV ONE (08:06)
[2020-05-23 08:36] LABS: Band Neutrophils % (manual) 2; Eosinophils % (manual) 15 (0-7); Lymphocytes % (manual) 22 (10.0-50.0); Metamyelocytes % 1; Monocytes % (manual) 2 (0-12)
[2020-05-23] MEDS: levoFLOXacin 500MG 100 ML IV SCH (10:41)
[2020-05-23] MEDS: HYDROCORTISONE ACET 25 MG RECTAL SUPP PR SCH ×2 (10:42)
[2020-05-23] MEDS: PANTOPRAZOLE 40 MG/10 ML VIAL INJ IV SCH (10:42)
[2020-05-23 13:23] VITALS: BP 121/56
[2020-05-23 15:21] VITALS: BP 130/70
== END 2020-05-23 16:25 | disposition hospice, home (50) | DRG 378 ==
LOC: ER 09:05 → EDBD 09:05 → TELE 09:06 → TELE-CENTR 05-20 04:53
PROVIDERS: ADMIT Internal Medicine; ATTEND Internal Medicine
PROC: 05HB33Z Insertion of Infusion Device into Right Basilic Vein, Percutaneous Approach (ICD-10-PCS; 2020-05-19)
PROC: B54MZZA Ultrasonography of Right Upper Extremity Veins, Guidance (ICD-10-PCS; 2020-05-19)
PROC: 30233N1 Transfusion of Nonautologous Red Blood Cells into Peripheral Vein, Percutaneous Approach (ICD-10-PCS; principal; 2020-05-20)
DX: K62.5 Hemorrhage of anus and rectum (principal); E87.1 Hypo-osmolality and hyponatremia; E44.0 Moderate protein-calorie malnutrition; J96.11 Chronic respiratory failure with hypoxia; G89.4 Chronic pain syndrome; M06.9 Rheumatoid arthritis, unspecified; R73.9 Hyperglycemia, unspecified; Z23 Encounter for immunization; J84.10 Pulmonary fibrosis, unspecified; D64.9 Anemia, unspecified; F17.210 Nicotine dependence, cigarettes, uncomplicated; Z20.822 Contact with and (suspected) exposure to COVID-19; Z51.5 Encounter for palliative care; J44.9 Chronic obstructive pulmonary disease, unspecified; Z85.07 Personal history of malignant neoplasm of pancreas; Z86.711 Personal history of pulmonary embolism; Z87.01 Personal history of pneumonia (recurrent); Z68.23 Body mass index [BMI] 23.0-23.9, adult; Z87.19 Personal history of other diseases of the digestive system
CPT/HCPCS: 36415; 71045; 74176; 80048; 80053; 81001; 82270; 82962; 83036; 83880; 84443; 84484; 85007; 85014; 85018; 85025; 85027; 85045; 85610; 85730; 86850; 86900; 86901; 86922; 87081; 87086; 87426; 93005; 94640; 99291; C9113; G0378; J1815; J1956; J3490

== ENCOUNTER 2021-02-03 08:46 | Emergency (ER) | payer MEDICARE, OTHER ==
[~2021-02-03] VITALS: Ht 182.9 cm; Wt 108.9 kg
[~2021-02-03 08:46] MED LIST changes: -ASPI-231 PO; +ASPI1TAB20 PO; +LORA0.5T20 PO; +MORP15TA PO; +PROM2SYP2 PO
[2021-02-03] MEDS ORDERED: SODIUM BICARBONATE 8.4 % INJ 50ML VIAL IV ONE (08:55)
[2021-02-03] MEDS ORDERED: EPINEPHrine HCL 250 ML IV ONE (09:00)
[2021-02-03] MEDS ORDERED: EPINEPHrine HCL 1 MG/10 ML SYRG ONE (09:09)
[2021-02-03] MEDS ORDERED: SODIUM BICARBONATE 8.4% INJ 50ML SYRINGE ONE (09:09)
[2021-02-03] MEDS ORDERED: SODIUM BICARB 50ML SYR 150 ML in SODIUM CHLORIDE 0.9% 1,000 ML IV ONE (09:15)
[2021-02-03] MEDS ORDERED: EPINEPHrine HCL 250 ML IV SCH (09:15)
[2021-02-03] MEDS ORDERED: MIDAZOLAM DRIP 50 mg/50mL 50 ML IV SCH (09:15)
[2021-02-03 09:28] LABS: Hemoglobin 10.2 g/dL (13.5-17.5); Mean Corpuscular Hgb Conc. 29.9 g/dL (32.0-36.0)
[2021-02-03 09:29] LABS: Mean Corpuscular Hemoglobin 27.4 pg (28.0-32.0); Mean Corpuscular Volume 91.4 fL (80.0-100.0); Red Blood Cells 3.72 10^6/uL (4.5-5.90); Red Cell Distribution Width 14.4 % (11.8-14.3); White Blood Cell 13.8 10^3/uL (4.4-10.8)
[2021-02-03] MEDS ORDERED: NOREPINEPHRINE 8 MG/250ML KIT 250 ML IV ONE (09:32)
[2021-02-03 09:33] LABS: Band Neutrophils % (manual) 0; Basophils % (manual) 0 (0.0-2.0); Blast Cells 0; Eosinophils % (manual) 0 (0-7); Metamyelocytes % 0; Myelocytes % 0; Promyelocytes % 0; Reactive Lymphocytes 0
[2021-02-03 09:43] LABS: Lactic Acid w/Reflex 11.8 mmol/L (0.4-2.0); Potassium 5.5 mmol/L (3.5-5.1)
[2021-02-03 09:45] LABS: INR 1.33 (0.9-1.15); Partial Thromboplastin Time 27.4 sec (23.6-33.0)
[2021-02-03] MEDS ORDERED: NOREPINEPHRINE 8 MG/250ML KIT 250 ML IV SCH ×2 (09:45→10:00)
[2021-02-03 09:54] LABS: Albumin 2.8 g/dL (3.4-5.0); BUN/Creatinine Ratio 15.2; Bilirubin, Total 0.4 mg/dL (0.2-1.0); CRP High Sensitivity 4.22 mg/dL (< 0.3); Total Protein 6.7 g/dL (6.4-8.2)
[2021-02-03 09:59] LABS: Urine Bacteria NONE SEEN /hpf (None Seen); Urine Blood 1+ /uL (Negative); Urine Hyaline Cast MOD /lpf (0 - 2); Urine Mucus FEW (None Seen); Urine Specific Gravity 1.023 (1.001-1.035); Urine WBC 2 /hpf (0 - 3)
[2021-02-03] MEDS ORDERED: FUROSEMIDE 40 MG/4 ML VIAL IV ONE (10:00)
[2021-02-03] MEDS ORDERED: DOBUTamine 1000MCG/ML 250 ML IV ONE (10:00)
[2021-02-03 10:02] LABS: Magnesium 4.2 mg/dL (1.6-2.6)
[2021-02-03 10:45] VITALS: BP 104/67
[2021-02-03 11:29] LABS: Lymphocytes % (manual) 22 (10.0-50.0); Monocytes % (manual) 6 (0-12)
== END 2021-02-03 11:08 ==
LOC: EDBD 08:46 → ER 08:46
DX: J96.00 Acute respiratory failure, unspecified whether with hypoxia or hypercapnia (principal); I50.9 Heart failure, unspecified; I11.0 Hypertensive heart disease with heart failure; I25.10 Atherosclerotic heart disease of native coronary artery without angina pectoris; F17.210 Nicotine dependence, cigarettes, uncomplicated; Z79.82 Long term (current) use of aspirin; Z79.899 Other long term (current) drug therapy; Z20.822 Contact with and (suspected) exposure to COVID-19
CPT/HCPCS: 31500; 36415; 36556; 71045; 80053; 81001; 82728; 83605; 83615; 83735; 83880; 84484; 85007; 85027; 85610; 85730; 86141; 87040; 87070; 87077; 87205; 87426; 92950; 93005; 96365; 96368; 99291; C9803; J0171; J2250; J7030; U0003; 94002